=== PATIENT | male | born 1970 | race Caucasian/White ===

== ENCOUNTER → 2018-12-21 | Outpatient (CLI) | payer MEDICARE, OTHER, MEDICAID ==
[~2018-12-21] MED LIST: BACLOFEN20 MG PO; LASIX 20 MG TAB20 MG PO; NEURONTIN600 MG PO; PROTONIX40 M1 PO; SPIRONOLACTONE25 MG PO
--- NOTE | ~2018-12-21 | PAINCON ---
[address] [address] PAIN MANAGEMENT CONSULTATION Name: SAVANAH WALKER [id number] Admission: 12/21/18 Attend Phys: Tracey Read MD Discharge: Date of : 66 Report #: [id number] THIS REPORT FOR: //name// CC: Tracey Costa DATE OF SERVICE: 12/21/2018 CHIEF COMPLAINT: Chronic neck pain. HISTORY: The patient is a 48-year-old gentleman, who has been referred to the pain clinic for evaluation. The patient has bilateral arm pain and neck pain. He has had problems since 03/2015. 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 He was seen at the [facility] in 2014. He had cervical stenosis per his report. He underwent surgery. He states that when he woke up he was quadriplegic. He has had problems arising from the quadriplegia. He has undergone physical therapy. He continues to have muscle spasms. He notes that cold weather and changes in weather we have been experiencing have been quite problematic. The patient is homebound due to his paraplegia He has a walker/assisting device. He has limited mobility. The patient states that he has had some problems with liver. He states that he had significant fluid buildup in his abdomen. He has undergone drainage of this fluid. He states that they took off maybe about 6 liters. He has been found to have some elevated liver function tests. He continues to have chronic neck pain and has a history of alcohol abuse in the past. The patient states that he had the ascites drained from his abdomen about 4 weeks ago. PAST MEDICAL HISTORY: Anasarca, hepatic steatosis, ascites, thrombocytopenia, skin breakdown, stasis dermatitis, sinus tachycardia, prediabetes, paraplegia, chronic pain, macrocytic anemia, obstructive sleep apnea, elevated liver function test, cholelithiasis, cerebral palsy, spinal stenosis, testicular cancer, and jaundice. PAST SURGICAL HISTORY: Cervical intervention for cervical stenosis with resultant quadriplegia, surgical laminectomy, and leg surgery, left. CURRENT MEDICATIONS: Baclofen 20 mg q.i.d., Lasix 20 mg daily, gabapentin 600 mg t.i.d., Protonix 40 mg, and spironolactone 25 mg. ALLERGIES: No known drug allergies. SOCIAL HISTORY: He is disabled, has not worked in 6 years. REVIEW OF SYSTEMS: Generally, in good health, recent weight change, chronic sinus problems, nosebleeds, frequent urination, awakens at night to urinate, sexual difficulty, noninsulin dependent diabetes, excessive thirst, joint pains, [place] [address] PAIN MANAGEMENT CONSULTATION Name: SAVANAH WALKER Room: [facility]#: [id number] Admission: 12/21/18 Attend Phys: Tracey Read MD Discharge: Date of : 66 Report #: [id number] joint stiffness, muscle cramps, numbness and tingling sensation, tremors, and paralysis. PAIN CLINIC ASSESSMENT AND PQRS: 1. Osteoarthritis: The patient has not been treated for osteoarthritis or rheumatoid arthritis. 2. Pain intensity is 4-5/10. 3. Fall risk. The patient has not fallen in the last 3 months. 4. Blood thinner. The patient is not on a blood thinning medication. 5. Hypertension. The patient is being treated for hypertension. 6. Opioids greater than 6 weeks. The patient is not on chronic opioid medications. 7. Risk assessment tool, high for opioid use. 8. Functional assessment tool, . 9. Recreational drug use. The patient denies use of recreational drugs. 10. Tobacco: The patient smokes 1 pack of cigarettes per week. Discussed the benefits of smoking cessation. 11. Alcohol. The patient states that he stopped drinking about 4 months ago. He noted problems with ascites. PHYSICAL EXAMINATION: GENERAL: The patient is in a wheelchair. His significant other is with him. Height is 5 feet 11 inches, weight is not gleaned. HEENT: Normocephalic, atraumatic. Extraocular eye muscles intact. Sclerae nonicteric. Mucous membranes are moist. NECK: Without adenopathy. HEART: Regular rate. ABDOMEN: Nontender. Bowel sounds present. EXTREMITIES: The patient has paralysis in the lower extremities and paresis in the upper extremities. He notes some numbness and tingling sensation in his right arm and fingers as well as in the left arm and fingers. He has function of his upper extremities. LABORATORY DATA: No new laboratory values are available at this juncture. IMPRESSION: 1. History of ascites, possibly due to damage from liver and alcohol use. 2. Anasarca. 3. Hepatic steatosis. 4. Thrombocytopenia. 5. Skin breakdown. 6. Stasis dermatitis. 7. Sinus tachycardia. 8. Prediabetes. 9. Paraplegia. 10. Chronic pain. [address] [address] PAIN MANAGEMENT CONSULTATION Name: SAVANAH WALKER Room: [facility]#: [id number] Admission: 12/21/18 Attend Phys: Tracey Read MD Discharge: Date of : 66 Report #: [id number] 11. Macrocytic anemia. 12. Obstructive sleep apnea. 13. Elevated liver function test. 14. Cholelithiasis. 15. Cerebral palsy. 16. Spinal stenosis. 17. Testicular cancer. 18. Jaundice. RECOMMENDATIONS: The patient's primary has asked that we provide medications for his spasticity. We will continue with baclofen 10 mg 1 p.o. q.i.d. We had a long talk with the patient, discussed the problems with alcohol use. The patient is suffering from ascites. I explained the problems of additional alcohol use. We will provide the patient with the baclofen medication. We discussed the benefits and risks of obstructive sleep apnea. Recommend that the patient tried to use his CPAP machine. I explained as simply as possible reasons for ascites development and the implications. The patient will take his medication as prescribed. He will call us if he has any concerns. His significant other was with him. We would like to thank you for letting us to participate in his care. We hope he continues to improve. By: [id number]. Dennis Read MD /[place]
== END ==
LOC: M.PC 11:10
DX: M54.2 Cervicalgia (principal); G89.29 Other chronic pain; R60.1 Generalized edema; K76.0 Fatty (change of) liver, not elsewhere classified; D69.6 Thrombocytopenia, unspecified; I87.2 Venous insufficiency (chronic) (peripheral); R73.03 Prediabetes; G82.20 Paraplegia, unspecified; R00.0 Tachycardia, unspecified; L98.491 Non-pressure chronic ulcer of skin of other sites limited to breakdown of skin

== ENCOUNTER → 2019-02-17 | Outpatient (CLI) | payer MEDICARE, OTHER, MEDICAID ==
[~2019-02-17] MED LIST changes: +AMITRIPTYLINE H25 M2 PO
--- NOTE | ~2019-02-17 | PAINCON ---
[address] [address] PAIN MANAGEMENT CONSULTATION Name: DENISEMANFunimlayo Rosenbaum [id number] Admission: 02/17/19 Attend Phys: Tracey Read MD Discharge: Date of : 66 Report #: [id number] THIS REPORT FOR: //name// CC: Tracey Costa DO DATE OF SERVICE: 02/17/2019 CHIEF COMPLAINT: Pain in the elbows, hands and "burn sensation in my hands." HISTORY: The patient is a 48-year-old gentleman who has been seen in the pain clinic because of chronic pain. He had an unfortunate situation. He had spinal stenosis. After his spinal stenosis surgery, he became quadriplegic. He has undergone physical therapy. Continue having muscle spasms. Finds that the baclofen medication is quite helpful with this. He takes it about 3 times daily. He notes that the weather changes exacerbate this discomfort. Overall, now that the weather is warming up, things are less problematic. He is homebound due to his paraplegia. He uses a mobile electric wheelchair. He has had some problems with his liver. He states that he has changed his eating somewhat. He has lost some weight. He has noted that his lower extremities are less swollen and problematic. His significant other elevates his legs in the evening. He feels like things are going relatively well at this point. He would like to continue with his current medications. He has had no complications from them. He has used amitriptyline in the past. He felt that the level was about 200 mg. He states that this has kept him pretty sleepy as a result of that medication and others. ALLERGIES: No known drug allergies. CURRENT MEDICATIONS: Baclofen 20 mg q.i.d., Lasix 20 mg daily, gabapentin 600 mg t.i.d., Protonix 40 mg, and spironolactone 25 mg. PAIN CLINIC ASSESSMENT/PQRS: 1. Osteoarthritis. The patient is not being treated for osteoarthritis or rheumatoid arthritis. 2. Height 5 feet 11 inches, weight 215 pounds, and BMI is 29.5. 3. Vital signs: Blood pressure 137/82, heart rate 88, respiratory rate 16, room air saturation 98%, and temperature 98. Pain score 4/10. 4. Fall risk. The patient has not fallen in the last 3 months. 5. Blood thinner. The patient is not on a blood thinning medication. 6. Hypertension. The patient is being treated for hypertension. 7. Opioids greater than 6 weeks. The patient is not on a chronic opioid regimen. 8. Risk assessment tool. High for opioid use. 9. Functional assessment tool: . [place] [address] PAIN MANAGEMENT CONSULTATION Name: SAVANAH WALKER [facility] [id number] Admission: 02/17/19 Attend Phys: Tracey Read MD Discharge: Date of : 66 Report #: [id number] 10. Recreational drug use. The patient denies use of recreational drugs. 11. Tobacco: The patient smokes 1 pack of cigarettes per week. Discussed the benefits of smoking cessation. 12. Alcohol: The patient denies alcohol since we have seen him last. Stopped drinking about 4 months ago. He had ascites as a result of alcohol use. PHYSICAL EXAMINATION: GENERAL: The patient is in a wheelchair. Significant other is with him. HEENT: Normocephalic, atraumatic. Extraocular eye muscles intact. Sclerae nonicteric. Mucous membranes moist. NECK: Without adenopathy. A well-healed scar in the posterior portion of his neck. Upper extremity: Decreased muscle strength in the upper extremities and decreased movement in his fingers. ABDOMEN: Nontender. EXTREMITIES: Upper extremity shows paralysis. Numbness and tingling sensation in his right arm and fingers as well as his hands and fingers. Loss of function in the lower extremities. IMPRESSION: 1. History of ascites, possibly due to damage from the liver and alcohol use. 2. Anasarca, improved. 3. Hepatitis steatosis. 4. Thrombocytopenia. 5. Skin breakdown. 6. Stasis dermatitis. 7. Sinus tachycardia. 8. Prediabetes. 9. Paraplegia. 10. Chronic pain. 11. Microcytic anemia. 12. Obstructive sleep apnea. 13. Elevated liver function test. 14. Cholelithiasis. 15. Cerebral palsy. 16. Spinal stenosis. 17. Testicular cancer. 18. Jaundice. RECOMMENDATIONS: We discussed treatment options with the patient. At this point, he feels that things are going relatively well. He feels that the gabapentin medication is quite beneficial. Also, notes that baclofen is helpful with these muscle spasms. He has used Elavil in the past. He states that he was on about 200 mg. I think that use of Elavil at this juncture at a dose of 25-50 mg might prove helpful with the pain, numbness and tingling sensation he has felt in his extremities. Risks and benefits of that were discussed. The patient states that he is changing and modified his eating habits. He is eating [address] [place] [address] PAIN MANAGEMENT CONSULTATION Name: SAVANAH WALKER [facility] [id number] Admission: 02/17/19 Attend Phys: Tracey Read MD Discharge: Date of : 66 Report #: [id number] less of the high sugar and starchy foods. He has a lot noted some weight loss. He is overall happy with the way that things are going. At this juncture, we will renew the patient's medication for the next 3 months. A script for baclofen 20 mg 1 p.o. q.i.d. have been written. The patient will also try Elavil 25 mg at bedtime. Hopefully, this will be helpful. He will call us should he have problems. We would like to thank you for letting us participate in his care. We hope he continues to improve. By: 1214 1455N. Dennis Read MD /nt
== END ==
LOC: M.PC 01-18 10:50
DX: G89.29 Other chronic pain (principal); G47.33 Obstructive sleep apnea (adult) (pediatric); G80.9 Cerebral palsy, unspecified; I10 Essential (primary) hypertension; K76.0 Fatty (change of) liver, not elsewhere classified; M48.00 Spinal stenosis, site unspecified; C62.90 Malignant neoplasm of unspecified testis, unspecified whether descended or undescended; F17.210 Nicotine dependence, cigarettes, uncomplicated; Z79.899 Other long term (current) drug therapy; Z79.891 Long term (current) use of opiate analgesic

== ENCOUNTER 2019-05-22 14:53 | Inpatient (IN) | payer MEDICARE, OTHER, MEDICAID ==
[2019-05-22] VITALS (50 sets, daily range): BP systolic 000–152; BP diastolic 00–93
[~2019-05-22] VITALS: Ht 172.7 cm; Wt 116.6 kg
--- NOTE | ~2019-05-22 | PROC ---
[address] [address] PROCEDURE REPORT Name: SAVANAH WALKER Room: [address] IN .R.#: [id number] Admission: 05/22/19 Attend Phys: Gucci Malhotra MD Discharge: Date of : 66 Report #: [id number] THIS REPORT FOR: //name// For GI report, please see the Provation report in Perceptive 7 content. By: 07Medical Records Staff TOM /FARA
--- NOTE | ~2019-05-22 | CON ---
[address] [address] CONSULTATION Name: SAVANAH WALKER Room: [address] IN M.R.#: [id number] Admission: 05/22/19 Attend Phys: Gucci Malhotra MD Discharge: Date of : 66 Report #: [id number] THIS REPORT FOR: //name// CC: Foster Malhotra DATE OF SERVICE: 05/23/2019 REASON FOR CONSULT: Hematemesis. HISTORY OF PRESENT ILLNESS: This is a 48-year-old male who presented to our hospital with hypotension. The patient apparently has had melanotic stool at home and continued doing that during hospitalization. He also was intubated and during intubation, he had significant amount of hematemesis. His hemoglobin initially had dropped to 5 and he received 4 units of packed RBC, which increased his hemoglobin above 10. He also had elevation of his INR to 1.5 and received 2 units of FFP. Initially after intubation, he was placed on 2 different pressors and was maxed out on both. He continues to have borderline pressures. The patient has long history of alcoholism and has end-stage liver disease due to the same. The patient's mother reports that 4 months ago, he was in [facility] when they took quite bit of fluid from his intra-abdominal cavity. She believes that they took total of 28 liters. The patient's mother also reports that he continued to drink alcohol, but he is drinking beer versus hard liquor. The patient apparently lives at home alone. PAST MEDICAL HISTORY: Significant for history of alcoholism, alcoholic liver disease, gastroesophageal reflux disease, diabetes type 2, and spinal stenosis. ALLERGIES: No known drug allergy. MEDICATIONS: Please refer to MAR. SOCIAL HISTORY: Please refer to the other notes as we cannot obtain this. FAMILY HISTORY: Please refer to the other notes as we cannot obtain this. PHYSICAL EXAMINATION: GENERAL: The patient is currently intubated and is on pressors. VITAL SIGNS: His pressure is 111/49. His heart rate is 110. ABDOMEN: Large, soft. CARDIOVASCULAR: Tachycardic but regular. LUNGS: The patient is intubated. NEUROLOGIC: [place] [address] CONSULTATION Name: SAVANAH WALKER Room: [address]#: [id number] Admission: 05/22/19 Attend Phys: Gucci Malhotra MD Discharge: Date of : 66 Report #: [id number] LABORATORY DATA: Labs reveal sodium of 135, potassium 4.8, BUN is 43, creatinine 2.3, and glucose 211. AST is 1467, ALT 943, alkaline phosphatase 87, total bilirubin is 4.3, up from 1.7, lactic acid is 5.4. INR is 1.5. WBC 13.3 with hemoglobin of 9.4. Note after 4 units of packed RBC, platelet is 95. IMAGING: Chest x-ray was obtained today, which is significant for placement of endotracheal tube and gastric tube. There is mild gaseous distention of the stomach and there is also a new area of left lower lobe atelectasis versus pneumonia, which has developed and less in prominent area of the right lobe. ASSESSMENT AND PLAN: The patient who presents with hypotension, anemia, and history of melanotic stool. He is known to have alcoholic liver disease, cirrhosis. He is currently intubated and on pressors. The patient's prognosis is extremely poor. Currently, there is no sign of bleeding. We had started him on octreotide drip and also Protonix drip, which we will continue both. Also, he was on ceftriaxone, which we will continue that as well. I will monitor his H and H every 8 hours. His elevation of transaminases in 1500 range is secondary to shock liver. Note, the patient also has underlying liver disease due to cirrhosis. We will continue to monitor the patient. At this time, I do not see any urgency on scoping him. By: 1351 2216Izabel Magaña MD /[place]
[2019-05-22 15:11] LABS: BE -9.7 mmol/L (-2 to +3); PCO2 29.4 mmHg (35.0-45.0); PO2 122.9 mmHg (75.0-100.0); pH 7.333 (7.340-7.450)
[2019-05-22 15:54] LABS: MCH 30.7 pg (26.0-34.0); MCHC 29.3 g/dL (28.0-37.0); MCV 104.9 fL (80.0-100.0); MPV 10.6 fl. (7.2-11.1); NUCLEATED RBCS 0 /100WBC; PLATELET COUNT* 152 thou/uL (150-400); RBC 1.66 mil/uL (4.50-6.00); WBC 19.5 thou/uL (4.0-11.0)
[2019-05-22 15:56] LABS: HEMATOCRIT 17.4 % (42.0-52.0); HEMOGLOBIN 5.1 gm/dL (14.0-18.0)
[2019-05-22 16:06] LABS: URINE BLOOD 1+ (Negative); URINE CLARITY CLOUDY; URINE COLOR STRAW; URINE GLUCOSE-RANDOM 3+ (Negative); URINE KETONES NEGATIVE (Negative); URINE NITRITE-REFLEX NEGATIVE (Negative); URINE PROTEIN NEGATIVE (Negative); URINE SPECIFIC GRAVITY <= 1.005 (1.005-1.030); URINE UROBILINOGEN 0.2 E.U./dl (0.2-1.0)
[2019-05-22 16:07] LABS: URINE BILIRUBIN 1+ (Negative); URINE LEUKOCYTES-REFLEX 2+ (Negative)
[2019-05-22 16:08] LABS: ICTOTEST (BILI CONFIRMATORY) Negative (Negative)
[2019-05-22 16:11] LABS: SQUAMOUS 4-10 Moderate /LPF (0-3)
[2019-05-22 16:12] LABS: ALBUMIN 1.9 g/dL (3.4-5.0); ALKALINE PHOSPHATASE 58 U/L (46-116); ANION GAP 19 mmol/L (7-16); BUN 33 mg/dL (7-18); CHLORIDE 86 mmol/L (98-107); CO2 18 mmol/L (21-32); CREATININE 1.7 mg/dL (0.6-1.3); NT-PRO BRAIN NAT PEPTIDE 13 pg/mL (<300); POTASSIUM 4.8 mmol/L (3.5-5.1); SGOT 17 U/L (15-37); SGPT 17 U/L (30-65); SODIUM 123 mmol/L (136-145); TOTAL BILIRUBIN 1.7 mg/dL (<0.1-1.0); TOTAL PROTEIN 4.2 g/dL (6.4-8.2); TROPONIN-I LEVEL <0.06 ng/mL (<0.06)
[2019-05-22 16:12] LABS: BACTERIA-REFLEX >30 Many /HPF (None Seen); URINE RBC 3-10 Few /HPF (0-2); WBC CLUMPS Moderate (None Seen)
[2019-05-22 16:13] LABS: CASTS None Seen /LPF (None Seen); CRYSTALS None Seen /LPF (None Seen); MUCUS None Seen strn/LPF (None Seen)
[2019-05-22 16:35] LABS: APTT 30.1 Seconds (25.0-31.3); INR 1.5; PROTIME 15.4 Seconds (9.20-11.50)
[2019-05-22 16:42] LABS: GLUCOSE 940 mg/dL (70-99)
[2019-05-22 17:18] LABS: ABSOLUTE EOSINOPHILS 0.6 thou/uL (0.0-0.7); ABSOLUTE LYMPHOCYTES 7.8 thou/uL (0.8-5.3); ABSOLUTE MONOCYTES 1.4 thou/uL (0.0-1.2); ABSOLUTE NEUTROPHILS 9.8 thou/uL (1.6-8.1); PLATELET ESTIMATE ADEQUATE
[2019-05-22 17:19] LABS: ANISOCYTOSIS 1+; MACROCYTES 1+; POLYCHROMASIA 1+
[2019-05-22 17:20] LABS: HYPOCHROMASIA Occasional
--- NOTE | 2019-05-22 17:20 | NUR ---
CODE STARTED AT 1659. PULSE BACK AT 1714. PT INTUBATED AT 1659, VENTILATION SETTINGS VT 650, 5 PEEP, RATE OF 12, 100%. SEE CODE SHEET FOR MEDICATIONS, COMPRESSION AND TIMES
[2019-05-22 18:03] LABS: BE -24.1 mmol/L (-2 to +3); PCO2 VENOUS 37.6 mmHg (41.0-51.0); PO2 VENOUS 137.5 mmHg (35.0-45.0)
--- NOTE | 2019-05-22 18:36 | NUR ---
SEE CODE SHEET FOR DOCUMENTATION, THREE BAGS OF BLOOD TRANSFUSED, PT ON LEVO GTT, FLUIDS AND EPI GTT
--- NOTE | 2019-05-22 19:35 | NUR ---
PT RECEIVED FROM ER AT 1815, INTUBATED AND ON VENT. UNDER MASSIVE TRANSFUSION, 2 UNITS OF PRBC AND 2 UNITS OF FFP INITIATED IN ICU. LEVOPHED AND EPI AT MAX RATE. HR IN 180s, BP STABILISED. VERSED 3MG ADMINISTERED. INSULIN STARTED. REPORT GIVEN TO STORE OPERATIONS ASSOCIATE RN.
[2019-05-22 21:09] LABS: HEMATOCRIT 34.7 % (42.0-52.0); HEMOGLOBIN 10.8 gm/dL (14.0-18.0); MCH 28.1 pg (26.0-34.0); MCHC 31.1 g/dL (28.0-37.0); MCV 90.4 fL (80.0-100.0); MPV 9.5 fl. (7.2-11.1); RBC 3.84 mil/uL (4.50-6.00); RDW-CV 19.9 % (10.5-14.5); WBC 20.9 thou/uL (4.0-11.0)
[2019-05-22 21:34] LABS: POTASSIUM 4.8 mmol/L (3.5-5.1)
[2019-05-22 21:35] LABS: CREATININE 1.8 mg/dL (0.6-1.3); MAGNESIUM 2.2 mg/dL (1.8-2.4)
[2019-05-22 22:42] LABS: BE -14.6 mmol/L (-2 to +3); PCO2 VENOUS 46.4 mmHg (41.0-51.0); PO2 VENOUS 86.8 mmHg (35.0-45.0)
--- NOTE | 2019-05-22 23:15 | NUR ---
NOTIFIED DR HARVEY TROP 0.66, HGB TRENDING UP FROM 5.1 TO 10.8, SVT CONTINUES HR 200'S-220, X1 DOSE ADENOSINE 12MG IVP MINIMAL EFFECT, HR DECREASED FROM 218 T0 180'S VIA RUBBER COVERING MACHINE OPERATOR FOR APROX 5MIN IN DURATION THEN INCREASED BACK TO 200-220'S. UPDATED DR HARVEY, NEW ORDERS RECEIVED ADMINISTER X1 MORE DOSE ADENOSINE 12MG IVP NOW. LEVOPHED AND VASOPRESSIN GTT'S REMAIN MAXED OUT TO MAINTAIN MAP 60. WILL INTATE ORDERS AND CONTINUE TO MONITOR.
--- NOTE | 2019-05-22 23:49 | NUR ---
ADENOSINE 12MG IVP GIVEN ORDERED, HR CONTINUES LOW 220'S, LEVOPHED AND VASOPRESSIN GTT'S TO MAINTAIN MAP =>60, NO CHANGE IN HR WITH ADENOSINE ADMINISTRATION, UPDATED DR HARVEY VIA TELEPHONE, NEW ORDERS TO ADMINISER LOADING DOSE DIGOXIN IVP, WILL INITATE ORDERS AND CONTINUE TO MONITOR.
[2019-05-22] MEDS ORDERED: LASIX 80 MG TAB80 MG PO (23:53)
[2019-05-23] VITALS (168 sets, daily range): BP systolic 60–148; BP diastolic 26–77
[2019-05-23] MEDS ORDERED: TRAZODONE HCL50 MG PO ×2 (00:03)
[2019-05-23] MEDS ORDERED: LASIX 80 MG TAB80 MG PO (00:07)
[2019-05-23] MEDS ORDERED: KLOR-CON 1010 MEQ (00:14)
[2019-05-23] MEDS ORDERED: REVATIO20 MG PO (00:17)
[2019-05-23 00:55] LABS: ALBUMIN 2.4 g/dL (3.4-5.0); CALCIUM 8.6 mg/dL (8.5-10.1); CREATININE 1.9 mg/dL (0.6-1.3); PHOSPHORUS* 7.1 mg/dL (2.5-4.9); POTASSIUM 4.8 mmol/L (3.5-5.1)
[2019-05-23 02:04] LABS: HEMATOCRIT 33.8 % (42.0-52.0); HEMOGLOBIN 11.1 gm/dL (14.0-18.0)
[2019-05-23 04:02] LABS: HEMATOCRIT 32.2 % (42.0-52.0); HEMOGLOBIN 10.8 gm/dL (14.0-18.0); MCH 28.3 pg (26.0-34.0); MCHC 33.5 g/dL (28.0-37.0); MPV 9.7 fl. (7.2-11.1); PLATELET COUNT* 95 thou/uL (150-400); WBC 13.3 thou/uL (4.0-11.0)
[2019-05-23 04:10] LABS: MCV 84.7 fL (80.0-100.0)
[2019-05-23 04:35] LABS: ALBUMIN 2.2 g/dL (3.4-5.0); MAGNESIUM 1.8 mg/dL (1.8-2.4); POTASSIUM 4.7 mmol/L (3.5-5.1); TOTAL BILIRUBIN 4.3 mg/dL (<0.1-1.0); TOTAL PROTEIN 4.8 g/dL (6.4-8.2)
[2019-05-23 05:41] LABS: pH 7.291 (7.340-7.450)
[2019-05-23 05:46] LABS: PHOSPHORUS* 5.1 mg/dL (2.5-4.9)
[2019-05-23 06:13] LABS: NUCLEATED RBCS 1 /100WBC
--- NOTE | 2019-05-23 06:21 | NUR ---
[address] HARVEY ORDERS FOR CARDIOVERSION PER ACLS PROTOCAL TO BE COMPLETED PER RN; 0050 THIS RN AT THE THIS BEDSIDE, PT PLACED ON LIFEPACK, MONITOR TRACING SVT RATE 230'S, WITH CRASH CART IN ROOM, RT, RNs x3; PT SHOCKED AT 200J PER PROTOCAL X1; PT CONVERTED TO ST 120'S; REPORTED TO DR HARVEY CARDIOVERSION EFFECTIVE; CARE CONTINUED BY JANICE PEOPLES.
[2019-05-23 07:27] LABS: ABSOLUTE LYMPHOCYTES 1.2 thou/uL (0.8-5.3); ABSOLUTE MONOCYTES 0.3 thou/uL (0.0-1.2); ABSOLUTE NEUTROPHILS 11.8 thou/uL (1.6-8.1); ANISOCYTOSIS 1+; PLATELET ESTIMATE DECREASED; POLYCHROMASIA 2+
[2019-05-23 08:50] LABS: CALCIUM 7.7 mg/dL (8.5-10.1); CREATININE 2.3 mg/dL (0.6-1.3); MAGNESIUM 1.5 mg/dL (1.8-2.4); PHOSPHORUS* 3.4 mg/dL (2.5-4.9); POTASSIUM 4.5 mmol/L (3.5-5.1)
--- NOTE | 2019-05-23 10:48 | NUR ---
Spoke with Pt's mom at bedside. Pt resides at home with his fiance. Pt is quadriplegic, but has regained some movement, but does not ambulate. Pt is wc bound. Pt has a hospital bed, tiffanie lift, and cpap at home. Pt has an aide, that's a friend, that comes in to assist with ADLs. No hx of HH. Hx of LTC at [facility] and acute rehab at [facility]. Cm following for disposition. ICU Rounds: Pt was cardioverted last evening. Here for GI bleed, possible scope toda. Arterial line placed.
[2019-05-23 11:51] LABS: BE -8.6 mmol/L (-2 to +3); PCO2 29.4 mmHg (35.0-45.0); PO2 79.7 mmHg (75.0-100.0); pH 7.351 (7.340-7.450)
[2019-05-23 12:48] LABS: CALCIUM 8.3 mg/dL (8.5-10.1); CREATININE 2.3 mg/dL (0.6-1.3); MAGNESIUM 1.5 mg/dL (1.8-2.4); PHOSPHORUS* 3.5 mg/dL (2.5-4.9); POTASSIUM 4.8 mmol/L (3.5-5.1)
[2019-05-23 15:39] LABS: BE -6.4 mmol/L (-2 to +3); PCO2 32.4 mmHg (35.0-45.0); pH 7.365 (7.340-7.450)
--- NOTE | 2019-05-23 15:42 | NUR ---
PT PASSED HUGE BLACK TARRY STOOL. PROVIDERS AWARE. MINIMAL NG DRAINAGE. NO ACTIVE BLEEDING.
[2019-05-23 15:44] LABS: PO2 199.7 mmHg (75.0-100.0)
--- NOTE | 2019-05-23 17:01 | EKG ---
[place] [address] ELECTROCARDIOGRAM REPORT Name: SAVANAH WALKER Room: [address] ADM IN M.R.#: [id number] Admission: 05/22/19 Attend Phys: Gucci Malhotra MD Discharge: Date of : 66 Report #: [id number] THIS REPORT FOR: //name// [facility] ED Test Date: 2019-05-22 Test Time: 14:56:42 Pat Name: SAVANAH WALKER Department: Room: [address] Gender: M Supervisor [employer]: [place] : 1970 Requested By: Jennifer Conway Order Number: [id number] Emanuel MD: Dat Quijano Measurements Intervals [place] Rate: 123 P: 42 MD: 128 QRS: -9 QRSD: 108 T: 29 QT: 353 QTc: 505 Interpretive Statements Sinus tachycardia Atrial premature complexes RSR' in V1 or V2, right VCD or RVH Prolonged QT interval Baseline wander in lead(s) V4,V5 No previous ECG available for comparison Electronically Signed On 05-23-2019 17:01:09 CDT by Dat Quijano [email or web address] <ELECTRONICALLY SIGNED> By: Dat Quijano MD, FACC 05/23/19 1701 1456 1456 Dat Quijano MD, [facility] /EPI
--- NOTE | 2019-05-23 17:01 | 2DMMODE ---
[place] [address] 2 D/M-MODE ECHOCARDIOGRAM Name: SAVANAH WALKER Room: [address] IN R.#: [id number] Admission: 05/22/19 Attend Phys: Gucci Malhotra, Discharge: Date of : 66 Date of Service: 05/23/19 1701 Report #: [id number] THIS REPORT FOR: //name// APPROVED REPORT Study performed: 05/23/2019 13:51:12 EXAM: Comprehensive 2D, Doppler, and color-flow Echocardiogram Patient Location: Bedside BSA: 2.20 HR: 115 bpm BP: 113/28 mmHg Other Information Study Quality: Fair Indications Arrhythmia 2D Dimensions IVSd: 11.81 (7-11mm) LVOT Diam: 20.99 (18-24mm) LVDd: 46.57 mm PWd: 11.18 (7-11mm) Ascending Ao: 29.23 (22-36mm) LVDs: 34.35 (25-40mm) Aortic Root: 30.68 mm Volumes Left Atrial Volume (Systole) LA ESV Index: 19.90 mL/m2 Aortic Valve AoV Peak Hieu.: 1.40 m/s AO Peak Gr.: 7.81 mmHg LVOT Max P.31 mmHg AO Mean Gr.: 4.73 mmHg LVOT Mean P.84 mmHg LVOT Max V: 1.26 m/s AO V2 VTI: 18.63 cm LVOT Mean V: 0.76 m/s MAUDE (VTI): 2.29 cm2 LVOT V1 VTI: 12.35 cm Mitral Valve E/A Ratio: 1.26 MV Decel. Time: 163.68 ms MV E Max Hieu.: 0.57 m/s MV PHT: 47.47 ms MVA (PHT): 4.63 cm2 [place] [address] 2 D/M-MODE ECHOCARDIOGRAM Name: SAVANAH WALKER Room: [address] IN [facility]#: [id number] Admission: 05/22/19 Attend Phys: Gucci Malhotra, Discharge: Date of : 66 Date of Service: 05/23/19 1701 Report #: [id number] TDI E/Lateral E': 5.70 E/Medial E': 4.38 Medial E' Hieu.: 0.13 m/s Lateral E' Hieu.: 0.10 m/s Pulmonary Valve PV Peak Hieu.: 1.27 m/s PV Peak Gr.: 6.41 mmHg Tricuspid Valve RAP Estimate: 5.00 mmHg TR Peak Gr.: 27.88 mmHg RVSP: 32.88 mmHg PA Pressure: 32.88 mmHg Left Ventricle The left ventricle is normal size. There is normal LV segmental wall motion. There is normal left ventricular wall thickness. Left ventricular systolic function is normal. The left ventricular ejection fraction is within the normal range. LVEF is 65-70%. The left ventricular diastolic function is normal. Right Ventricle The right ventricle is normal size. The right ventricular systolic function is normal. Atria The left atrium size is normal. The right atrium size is normal. Aortic Valve The aortic valve is normal in structure. No aortic regurgitation is present. There is no aortic valvular stenosis. Mitral Valve The mitral valve is normal in structure. There is no mitral valve regurgitation noted. No evidence of mitral valve stenosis. Tricuspid Valve The tricuspid valve is normal in structure. Trace tricuspid regurgitation. Pulmonic Valve The pulmonary valve is normal in structure. There is no pulmonic valvular regurgitation[place] [address] 2 D/M-MODE ECHOCARDIOGRAM Name: SAVANAH WALKER Room: [address] IN [facility]#: [id number] Admission: 05/22/19 Attend Phys: Gucci Malhotra, Discharge: Date of : 66 Date of Service: 05/23/19 1701 Report #: [id number] The aortic root is normal in size. IVC is normal in size and collapses >50% with inspiration. Pericardium There is no pericardial effusion. <Conclusion> The left ventricle is normal size. There is normal left ventricular wall thickness. Left ventricular systolic function is normal. The left ventricular ejection fraction is within the normal range. LVEF is 65-70%. The right ventricle is normal size. The left atrium size is normal. The aortic valve is normal in structure. The mitral valve is normal in structure. The tricuspid valve is normal in structure. IVC is normal in size and collapses >50% with inspiration. There is no pericardial effusion. There is normal LV segmental wall motion. <ELECTRONICALLY SIGNED> By: Kan Colorado MD, FACC 05/23/191700 00 00 Kan Colorado MD, FACC /INF
--- NOTE | 2019-05-23 17:03 | EKG ---
[place] [address] ELECTROCARDIOGRAM REPORT Name: SAVANAH WALKER Room: [address] ADM IN M.R.#: [id number] Admission: 05/22/19 Attend Phys: Gucci Malhotra MD Discharge: Date of : 66 Report #: [id number] THIS REPORT FOR: //name// [facility] ED Test Date: 2019-05-22 Test Time: 17:36:50 Pat Name: SAVANAH WALKER Department: Room: [address] Gender: M Rn Clinical [facility] 1970 Requested By: Jennifer Conway Order Number: [id number] Emanuel MD: Dat Quijano Measurements Intervals [place] Rate: 171 P: [place]: QRS: 33 QRSD: 114 T: 14 QT: 311 QTc: 525 Interpretive Statements Atrial fibrillation with rapid V-rate Incomplete right bundle branch block ST depression, probably rate related Baseline wander in lead(s) V1 No previous ECG available for comparison Electronically Signed On 05-23-2019 17:02:57 CDT by Dat Quijano [email or web address] <ELECTRONICALLY SIGNED> By: Dat Quijano MD, [facility] 05/23/19 1702 1736 1736 Dat Quijano MD, [facility] /EPI
--- NOTE | 2019-05-23 17:03 | EKG ---
[place] [address] ELECTROCARDIOGRAM REPORT Name: SAVANAH WALKER Room: [address] ADM IN M.R.#: [id number] Admission: 05/22/19 Attend Phys: Gucci Malhotra MD Discharge: Date of : 66 Report #: [id number] THIS REPORT FOR: //name// [facility] Test Date: 2019-05-22 Test Time: 18:53:15 Pat Name: SAVANAH WALKER Department: Room: [address] Gender: M Executive Creative Director: crow : [id number] Requested By: Gucci Malhotra Order Number: [id number] Reading MD: Dat Quijano Measurements Intervals [place] Rate: 190 P: PA: QRS: 30 QRSD: 128 T: 1 QT: 280 QTc: 498 Interpretive Statements Atrial fibrillation with rapid ventricular response Right bundle branch block Artifact in lead(s) II,aVR,V1,V2,V3,V4,V5,V6 No previous ECG available for comparison Electronically Signed On 05-23-2019 17:03:29 CDT by Dat Quijano [email or web address] <ELECTRONICALLY SIGNED> By: Dat Quijano MD, FACC 05/23/19 1703 [id number] Dat Quijano MD, FAC /EPI
[2019-05-23 19:31] LABS: HEMATOCRIT 27.5 % (42.0-52.0); HEMOGLOBIN 9.1 gm/dL (14.0-18.0); MCHC 33.1 g/dL (28.0-37.0); MCV 84.7 fL (80.0-100.0); MPV 9.7 fl. (7.2-11.1); RBC 3.25 mil/uL (4.50-6.00); RDW-CV 20.4 % (10.5-14.5); WBC 18.2 thou/uL (4.0-11.0)
--- NOTE | 2019-05-23 19:34 | NUR ---
PT'S BP LOW IN THE MORNING, NS BOLUS 500 MLS GIVEN, LEVOPHED AND VASOPRESSOR TITRATED PER PROTOCOL. INSULIN AND FLUID MGMT PER DKA PROTOCOL. OKAY FOR THE LABS TO BE DRAWN EVERY [address] HARVEY. MAG REPLACED HALF OF THE NORMAL ELECTROLYTE PROTOCOL. URINE- 450 MLS DARK TEA COLORED. ART LINE INSERTED. CVP MONITORING INITIATED. Q2 TURNS FOR SKIN INTEGRITY. ROUTINE CARE GIVEN.
[2019-05-23 19:36] LABS: CALCIUM 8.2 mg/dL (8.5-10.1); MAGNESIUM 1.9 mg/dL (1.8-2.4)
[2019-05-23 19:40] LABS: POTASSIUM 5.9 mmol/L (3.5-5.1)
[2019-05-23 20:16] LABS: URINE BLOOD 1+ (Negative); URINE CLARITY CLEAR; URINE COLOR YELLOW; URINE GLUCOSE-RANDOM NEGATIVE (Negative); URINE KETONES NEGATIVE (Negative); URINE LEUKOCYTES 1+ (Negative); URINE NITRITE POSITIVE (Negative); URINE PROTEIN NEGATIVE (Negative)
[2019-05-23 20:25] LABS: URINE BILIRUBIN 1+ (Negative)
[2019-05-23 20:26] LABS: ICTOTEST (BILI CONFIRMATORY) Positive (Negative)
[2019-05-23 20:27] LABS: SQUAMOUS 0-3 Few /LPF (0-3); URINE RBC 3-10 Few /HPF (0-2); URINE WBC 6-15 Few /HPF (0-5)
[2019-05-23 20:28] LABS: CRYSTALS None Seen /LPF (None Seen); FINE GRANULAR CASTS 0-3 Few /LPF (None Seen)
--- NOTE | 2019-05-23 21:53 | NUR ---
PT FEBRILE 103.2 ORAL, BLOOD CULTURES PREVIOUSLY OBTAINED 05/22/19, NOTIFIED DR VARGAS BIOMEDICAL PHOTOGRAPHER FOR DR HARVEY, NEW ORDERS OBTAINED TYLENOL SUPPOSITORY 650MG PER RECTUM Q4 PRN FEVER/PAIN, WILL ADMINISTER ORDERED AND CONTINUE TO MONITOR.
[2019-05-24] VITALS (123 sets, daily range): BP systolic 70–297; BP diastolic 37–208
[2019-05-24 00:41] LABS: CALCIUM 7.8 mg/dL (8.5-10.1); CREATININE 2.1 mg/dL (0.6-1.3); MAGNESIUM 1.7 mg/dL (1.8-2.4); PHOSPHORUS* 3.4 mg/dL (2.5-4.9)
--- NOTE | 2019-05-24 00:49 | NUR ---
OBTAINED Q4 RENAL PANAL RESULTS, D5 NS DC'D AND 0.45% NS TRA 125CC/HR TO BE STARTED PER DKA PROTOCOL ORDER. WILL INITIATE ORDERED AND CONTINUE TO MONITOR.
[2019-05-24 05:03] LABS: HEMOGLOBIN 8.8 gm/dL (14.0-18.0); MCH 28.4 pg (26.0-34.0); MCHC 33.8 g/dL (28.0-37.0); MCV 84.1 fL (80.0-100.0); MPV 9.7 fl. (7.2-11.1); RBC 3.1 mil/uL (4.50-6.00); WBC 19.6 thou/uL (4.0-11.0)
[2019-05-24 05:22] LABS: INR 1.8; PROTIME 18.3 Seconds (9.20-11.50)
[2019-05-24 05:40] LABS: CALCIUM 7.8 mg/dL (8.5-10.1); CREATININE 1.8 mg/dL (0.6-1.3); MAGNESIUM 1.9 mg/dL (1.8-2.4); POTASSIUM 4.7 mmol/L (3.5-5.1); TOTAL BILIRUBIN 7.6 mg/dL (<0.1-1.0); TOTAL PROTEIN 4.6 g/dL (6.4-8.2)
[2019-05-24 05:48] LABS: ALBUMIN 2.1 g/dL (3.4-5.0); CALCIUM 7.9 mg/dL (8.5-10.1); CREATININE 1.9 mg/dL (0.6-1.3); MAGNESIUM 1.8 mg/dL (1.8-2.4); PHOSPHORUS* 3.5 mg/dL (2.5-4.9); POTASSIUM 4.7 mmol/L (3.5-5.1)
--- NOTE | 2019-05-24 06:45 | NUR ---
SLOW PROGRESSION TOWARDS GOALS, FAN AND TYLENOL SUPPOSITORY X1 HELPFUL FOR FEVER, PT TOLERATING DECREASE FIO2 FROM 75% TO 50% BY RT, MAINTAINING SAO2 =>98%, HBG DECREASED FROM 9.4 TO 8.8, 500CC MAROON BLOODY FLUID FROM LIS NG, CONTINUES INSULIN GTT VIA INFUSION PUMP, ST [employer]AC[employer] TRAV[employer] A[employer] WORKER HR 120'S, X1 SMALL BLACK LIQUID STOOL, DANIELS PATENT DD 1200CC DARK ORANGE URINE, LEVOPHED GTT VIA INFUSION PUMP ABLE TO BE TITRATED FROM 19MCG/MIN TO 13MCG/MIN MAINTAINING MAP =>60.
--- NOTE | 2019-05-24 08:35 | CON ---
[address] [address] CONSULTATION Name: SAVANAH WALKER Room: [address] IN .R.#: [id number] Admission: 05/22/19 Attend Phys: Gucci Malhotra MD Discharge: Date of : 66 Report #: [id number] THIS REPORT FOR: //name// CC: Foster Costa DO DATE OF SERVICE: 05/23/2019 PULMONARY CONSULTATION ATTENDING PHYSICIAN: Gucci Malhotra MD; Foster Ramsey DO PRIMARY CARE PHYSICIAN: Rocky Costa DO LOCATION: The patient is located in room ICU bed #6. INDICATION FOR CONSULTATION: Acute respiratory failure, code blue, GI bleeding, and hypotension. CLINICAL SUMMARY: The patient is a 48-year-old male, prior smoker, quit 5 years ago. He was in the Emergency Room after had an upper GI bleed and he had weakness and hypotension. He had had bloody stools. He had frankie bloody vomitus before seen in the Emergency Room and he had black tarry stools. The patient around 5:00 p.m. yesterday afternoon, had a 15-minute PEA cardiac arrest. He dropped his blood pressure. He was on 5 units protocol and he had 5 units of packed cells and a couple units FFP. He appeared to survive from that. He was hypotensive and then transferred to the intensive care unit. His fasting blood sugar at the time was greater than 1000. He had metabolic acidosis for multiple reasons, positive anion gap. PAST MEDICAL HISTORY: I discussed with his mother and his sister at the bedside. He has had multiple medical problems. He was born with cerebral palsy. He was high functioning. He graduated college. He has been out on his own. 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 He had some spinal surgery at [facility] about 5 years ago and he had more paresis after that after they tried to repair his spinal stenosis. He can get up and walk with 2 people helping him at home with a gait belt and a walker. He gets up from the bed and chair and walks to the bathroom, 10-15 feet. His fiancee or girlfriend lives with him and helps him out and helps to use a Dara lift. He also has a history of chronic pain syndrome and he is an alcoholic according to the and sister, drinks several beers a day and also drinks some hard liquor. He has never had DTs before or been in this bad of shape according to the family. He has not had upper GI bleeds before or ulcers. Recently, the sister just told me he has not been wearing the CPAP at home recently. He is a loud snorer [place] [address] CONSULTATION Name: DENISEMARIIATANYA Rosenbaum Room: [address] IN [facility]#: [id number] Admission: 05/22/19 Attend Phys: Gucci Malhotra MD Discharge: Date of : 66 Report #: [id number] This has been for several years. We think it is a full facemask and it is supposed to be either 8-12 cm, we are trying to get that information from his fiancee. He also has a history of neuropathy. He has had diabetes mellitus type 2 and also cirrhosis problems and ascites, also had spinal stenosis, questionable history of COPD in the past from prior smoking history, although he did quit 5 years ago. He was not on oxygen at home, not on inhalers at home. He is unresponsive on the vent. He is on some sedation and he is hypotensive. I was asked to see him. He is also hypoxic on 100% and 5 of PEEP. ALLERGIES: He has no known medical allergies. MEDICATIONS: His current outpatient medications included he was on spironolactone 25 mg daily, Protonix 40 mg daily, furosemide (Lasix) 20 mg daily, Neurontin 600 mg t.i.d. He was taken off Elavil. He may have been on baclofen recently. Currently, he is on a Protonix drip. He is on IV antibiotics. He is on IV pressors, Levophed, and vasopressin and he has received some IV fluids. We also given another 500 mL normal saline bolus at this time. He may remain hypotensive with his liver disease and cirrhosis, may have some high output failure. He has also received one-time dose of Lanoxin for rapid heart rate, 0.25 mg and he has had one dose of adenosine. He has had octreotide also for drip and he is still on a fentanyl drip, and he was on a diltiazem drip and that has been discontinued. Sliding scale insulin and insulin drip is noted. Received 1 dose of Solu-Medrol 125 mg. He is on DuoNeb treatments, also on low-dose Versed at 3 mg per hour. REVIEW OF SYSTEMS: A 14-point review of systems reviewed and negative except for the pertinent positives noted by the family as above, also positive for obstructive sleep apnea and alcohol-induced liver disease, as well as diabetes and quadriparesis of his legs and some mild cerebral palsy. It should be noted his smoking history was 30 years, one pack a day but he quit 5 years ago. Still has alcoholic use with beer and occasionally some hard liquor. PHYSICAL EXAMINATION: GENERAL: A very critically-ill appearing 48-year-old male, sedated on the ventilator. He is nonresponsive. VITAL SIGNS: Currently his vital signs are; blood pressure 68/40 with the arterial line in with a fair waveform. He was reading 80/50 with the cuff. Heart rate is 110, respiratory rate is 22 with a backup rate of 22, and saturations 99% on 100% FiO2 and 7 of PEEP. Peak inspiratory pressure is 28. He is 5 feet 10 inches tall, weight is 111 kg or 230 pounds and BMI is 37. HEENT: Pupils are midpoint, sluggishly reactive. He is orally intubated, has an NG tube in place with some bloody secretions at 500 mL out of old bloody secretions over the last 8-12 hours. NECK: Supple, without nodes. No increase in jugular venous pressure. Orally intubated at 24 at the lips. CHEST: Shows a few rhonchi and crackles on the left, fairly [place] [id number] CONSULTATION Name: SAVANAH WALKER Room: [address] IN .R.#: [id number] Admission: 05/22/19 Attend Phys: Gucci Malhotra MD Discharge: Date of : 66 Report #: [id number] CARDIOVASCULAR: Sinus tachycardia with a heart rate 110. ABDOMEN: Obese, mild fluid wave. Liver edge is palpable on the right. No spleen on the left palpable. He is nontender. EXTREMITIES: Without cyanosis, clubbing, or edema. NEUROLOGIC: He withdraws to stimuli. LABORATORY DATA: Hemoglobin is 10 this morning with a white count of 13,000, normal differential, platelets are 95,000, had 24% bands. Initial hemoglobin was 5 when he came in. He has had 5 units since then of packed RBCs and 2 units of fresh frozen plasma. INR has been 15. Fibrinogen has been low at 150. PTT is 30. This morning; sodium is 133, potassium is 4.5, carbon dioxide is 20, BUN is 41, creatinine 2.3, glucose was 308, GFR was 30, calcium 7.7 and albumin is 2.0. ABG this morning on 100% and 600, assist control of 20 and PEEP of 5 shows a pO2 of 100, pH 7.29, pCO2 is 33, bicarbonate 16, saturation is 96%. Chest x-ray shows ET tube in good position, left central line in good position, no pneumothorax, left lower lobe and lung infiltrate new today from yesterday, right lung is clear. No definite CHF is noted. Blood cultures are pending. IMPRESSION: 1. Acute respiratory failure. 2. Status post code blue, pulseless electrical activity, probably related to hemorrhagic shock with pulseless electrical activity and hypotension and hemoglobin of 5. 3. Ischemic acute tubular necrosis, improving. 4. Liver cirrhosis associated with variceal bleed. 5. Toxic encephalopathy. 6. Diabetic ketoacidosis. 7. Supraventricular tachycardia with emergent cardioversion. 8. Ischemic hepatitis. 9. Spinal stenosis with quadriparesis of his legs with some ambulation at home. 10. Obstructive sleep apnea, not being treated at this time, full facemask with either 8 or 12 cm of CPAP. 11. Probable chronic obstructive pulmonary disease with cigarette smoking, quit 5 years ago, left lung infiltrate and early aspiration pneumonia. PLAN: Continue antibiotics. Await cultures, see if we can improve his oxygenation. He is hypotensive at this time may need to check his CVP. We will wait and see what GI does with endoscopy, see if there is anything to cauterize to help him out. Still very guarded prognosis and I discussed this with the patient's and sister at the bedside. They understood and agreed. This has been a 39-minute critical care consult. <ELECTRONICALLY SIGNED> By: George Soto MD 05/24/19 0835 1027 [id number] Soto MD /nt
[2019-05-24 09:23] LABS: ALBUMIN 1.9 g/dL (3.4-5.0); CALCIUM 7.6 mg/dL (8.5-10.1); CREATININE 1.9 mg/dL (0.6-1.3); MAGNESIUM 1.8 mg/dL (1.8-2.4); PHOSPHORUS* 3.3 mg/dL (2.5-4.9); POTASSIUM 4.4 mmol/L (3.5-5.1)
[2019-05-24 10:31] LABS: HEMATOCRIT 23.8 % (42.0-52.0); HEMOGLOBIN 7.9 gm/dL (14.0-18.0); MCH 28.2 pg (26.0-34.0); MCHC 33.3 g/dL (28.0-37.0); MCV 84.5 fL (80.0-100.0); MPV 8.8 fl. (7.2-11.1); RBC 2.82 mil/uL (4.50-6.00); RDW-CV 20.6 % (10.5-14.5); WBC 12.1 thou/uL (4.0-11.0)
[2019-05-24 11:01] LABS: BE -5.5 mmol/L (-2 to +3); PCO2 31.4 mmHg (35.0-45.0); pH 7.392 (7.340-7.450)
--- NOTE | 2019-05-24 12:12 | NUR ---
Nutrition: Pt admitted with GIB. Assessed for Joseph score 10. On vent. Wt: 257#. Per ICU rounds, awaiting GI consult. No nutrition interventions needed at this time. Will follow POC, 05/25/19.
[2019-05-24 12:27] LABS: CALCIUM 8.3 mg/dL (8.5-10.1); CREATININE 1.9 mg/dL (0.6-1.3); MAGNESIUM 1.8 mg/dL (1.8-2.4); PHOSPHORUS* 3.6 mg/dL (2.5-4.9); POTASSIUM 4.3 mmol/L (3.5-5.1)
--- NOTE | 2019-05-24 12:36 | NUR ---
WOUND CARE: CONSULT FOR COCCYX AND GROIN EXCORIATION PT WAS BROUGHT IN TO ER FOR SYNCOPE EPISODE. PT CODED WHILE IN ER AND TRANSFERED TO ICU ON VENT. HGB HAS BEEN DECREASED WITH PERIODIC BLOOD TRANSFUSIONS. HE HAS A HX OF SPINAL STENOSIS WITH QUADRIPARSIS AND CEREBRAL PALSY. PT WAS SEEN IN ICU, CURRENTLY INTUBATED, DANIELS IN PLACE WITH NG TUBE. PT NOT RESPONSIVE. PT HAS SEVERAL AREAS TO HIS BILAT BUTTOCK, COCCYX AND SACRUM THAT COULD POSSIBLY BE DTI. THE SACRUM IS DEEP PURPLE WITH THE SKIN SPLIT IN A TEAR. THERE IS NO DRAINAGE, THE SURROUNDING SKIN IS APPROPRIATE AND BLANCHES. THE PT IS HAVING INCONTINANT LIQUID DARK STOOLS. THERE IS MOISTURE ASSOCIATED EXCORIATION WITH A POSSIBLE FUNGAL COMPONENET TO BILAT GROIN FOLDS. ALL AREAS WASHED WITH WOUND CLEANSER, PATTED DRY. THE SACRUM WAS COVERED WITH A BOARDERED FOAM DRESSING, APPLIED PHYTOPLEX TO THE SURROUNDING BUTTOCK TISSUE. APPLIED ANTIFUNGAL OINTMENT TO GROIN FOLDS. PTS HEELS WERE ASSESED, SKIN IS INTACT, NO BREAKDOWN NOTED. PTS HEELS FLOATED FROM BED WITH PILLOW. PT TURNED WITH NURSES HELP.
--- NOTE | 2019-05-24 13:03 | NUR ---
RECEIVED REPORT AND ASSUMED CARE AT 0700. ASSESSMENT COMPLETED CHARTED. MEDICATION ADMIN PER EMAR. BED LOCKED IN LOWEST POSITION.
[2019-05-24 16:14] LABS: HEMOGLOBIN 8.4 gm/dL (14.0-18.0)
[2019-05-24 16:26] LABS: CALCIUM 7.8 mg/dL (8.5-10.1); CREATININE 1.7 mg/dL (0.6-1.3); MAGNESIUM 1.9 mg/dL (1.8-2.4); PHOSPHORUS* 3.5 mg/dL (2.5-4.9); POTASSIUM 4.2 mmol/L (3.5-5.1)
--- NOTE | 2019-05-24 17:13 | NUR ---
SPOKE WITH DR HARVEY RE PT HR OF 140S. LEVOPHED TITRATED PT VERY SENSITIVE TO CHANGES. NO NEW ORDERS DR FEELS BEST TO NOT ADD ANYTHING AT THIS TIME ALSO REPORTED HGB OF 8.
[2019-05-24 20:05] LABS: ABSOLUTE LYMPHOCYTES 0.8 thou/uL (0.8-5.3); ABSOLUTE MONOCYTES 0.6 thou/uL (0.0-1.2); ABSOLUTE NEUTROPHILS 13.3 thou/uL (1.6-8.1); BASOPHILS 0.2 %; EOSINOPHILS 0.1 %; HEMATOCRIT 25.6 % (42.0-52.0); HEMOGLOBIN 8.5 gm/dL (14.0-18.0); LYMPHOCYTES 5.3 %; MCH 27.9 pg (26.0-34.0); MCHC 33.2 g/dL (28.0-37.0); MPV 8.8 fl. (7.2-11.1); NUCLEATED RBCS 0 /100WBC; PLATELET COUNT* 96 thou/uL (150-400); POLYS 90.4 %; RBC 3.05 mil/uL (4.50-6.00); RDW-CV 21.2 % (10.5-14.5); WBC 14.7 thou/uL (4.0-11.0)
[2019-05-24 20:53] LABS: ALBUMIN 2.1 g/dL (3.4-5.0); ALKALINE PHOSPHATASE 86 U/L (46-116); ANION GAP 11 mmol/L (7-16); BUN 48 mg/dL (7-18); CALCIUM 7.7 mg/dL (8.5-10.1); CHLORIDE 107 mmol/L (98-107); CO2 22 mmol/L (21-32); CREATININE 1.6 mg/dL (0.6-1.3); GLUCOSE 189 mg/dL (70-99); PHOSPHORUS* 3.3 mg/dL (2.5-4.9); POTASSIUM 4.1 mmol/L (3.5-5.1); SODIUM 140 mmol/L (136-145); TOTAL BILIRUBIN 7.9 mg/dL (<0.1-1.0); TOTAL PROTEIN 4.7 g/dL (6.4-8.2)
[2019-05-24 21:07] LABS: SGOT 2726 U/L (15-37); SGPT 2498 U/L (30-65)
[2019-05-25] VITALS (70 sets, daily range): BP systolic 73–239; BP diastolic 42–113
[2019-05-25 01:48] LABS: ALBUMIN 2.1 g/dL (3.4-5.0); CALCIUM 7.8 mg/dL (8.5-10.1); CREATININE 1.7 mg/dL (0.6-1.3); PHOSPHORUS* 3.2 mg/dL (2.5-4.9); POTASSIUM 3.8 mmol/L (3.5-5.1)
[2019-05-25 05:18] LABS: HEMATOCRIT 24.6 % (42.0-52.0); HEMOGLOBIN 8.5 gm/dL (14.0-18.0); INR 1.6; MCHC 34.5 g/dL (28.0-37.0); MCV 84.3 fL (80.0-100.0); MPV 9.1 fl. (7.2-11.1); PROTIME 16.3 Seconds (9.20-11.50); RBC 2.91 mil/uL (4.50-6.00); RDW-CV 21.6 % (10.5-14.5); WBC 10.2 thou/uL (4.0-11.0)
[2019-05-25 05:35] LABS: CALCIUM 7.6 mg/dL (8.5-10.1); CREATININE 1.7 mg/dL (0.6-1.3); POTASSIUM 4.2 mmol/L (3.5-5.1); TOTAL BILIRUBIN 7.2 mg/dL (<0.1-1.0); TOTAL PROTEIN 4.8 g/dL (6.4-8.2)
[2019-05-25 05:48] LABS: ALBUMIN 2.1 g/dL (3.4-5.0); CALCIUM 7.5 mg/dL (8.5-10.1); CREATININE 1.7 mg/dL (0.6-1.3); MAGNESIUM 1.9 mg/dL (1.8-2.4); PHOSPHORUS* 3.5 mg/dL (2.5-4.9); POTASSIUM 4.2 mmol/L (3.5-5.1)
[2019-05-25 05:54] LABS: PCO2 33.6 mmHg (35.0-45.0); PO2 79.9 mmHg (75.0-100.0); pH 7.379 (7.340-7.450)
--- NOTE | 2019-05-25 07:51 | NUR ---
SLOW PROGRESSION TOWARDS GOALS, AFEBRILE, LEVOPHED GTT TITRATD DOWN TO 4MCG/MIN, INSULIN GTT TITRATED FROM 15UNITS/HR TO 8UNITS HOUR MAINTAIN FSBS 150-200, FIO2 DECREASED BY RT FROM 70% TO 60%, MAINTAINING SAO2 =>98%, MINIMAL BEIGE THICK SECRETIONS SUCTIONED VIA INLINE ET TUBE. 100CC DARK MAROON DRAINAGE FROM NG LIS, DISTANT MINIMAL BOWEL SOUNDS, DANIELS PATENT DD 600CC ORANGE URINE WITH MINIMAL SEDIMENT, PRAFO BOOTS FOR BILAT FOOT DROP, FULL BED BATH GIVEN. X2 20MEQ POTASSIUM IVPB PER DKA PROTOCOL, IVF CHANGED TO ADD 20KCL AND 6MM KPHOS PER DKA PROTOCOL CONTINUES TO VIA INFUSION PUMP 80CC/HR.
[2019-05-25 09:27] LABS: ALBUMIN 1.9 g/dL (3.4-5.0); CALCIUM 7.3 mg/dL (8.5-10.1); CREATININE 1.7 mg/dL (0.6-1.3); POTASSIUM 4.5 mmol/L (3.5-5.1)
[2019-05-25 09:29] LABS: PHOSPHORUS* 3.9 mg/dL (2.5-4.9)
--- NOTE | 2019-05-25 10:39 | NUR ---
Nutrition: follow up note. Pt still intubated. Wt is fluctuating. Albumin 1.9, prealb 9.5, elevated LFTs, BG 187. D5 @ 80mL. Per ICU rounds, waiting on POC. Possible EGD while intubated today. Will await POC and follow up 05/27/19.
--- NOTE | 2019-05-25 18:38 | NUR ---
RECIEVED REPORT AND ASSUMED CARE AT 0700. ASSESSMENT COMPLETED CHARTED. MEDICATION ADMIN PER ORDERS. PT SLOWLY PROGRESSING TOWARDS GOALS. UNABLE TO TITRATE OFF LEVO THIS SHIFT. EGD COMPLETED. NG D/C PER PHYSICIAN. POSITION CHANGED EVERY 2 HOURS, HEELS OFF LOADED. BED LOCKED IN LOWEST POSITION, BED ALARM ON. ROUNDING COMPLETED AND ALL NEEDS MET.
--- NOTE | 2019-05-25 21:11 | NUR ---
INTITAL ASSESMENT COMPLETED AT 1915. PT INTUBATED AND SEDATED ON VENTILATOR. PT IN BILATERAL SOFT WRIST RESTRAINTS TO MAINTAIN ET TUBE, CENTRAL LINE, DANIELS CATHETER, RIGHT RADIAL ARTERIAL LINE. ORAL CARE IAND TURN COMPLETED.
[2019-05-26] VITALS (86 sets, daily range): BP systolic 80–130; BP diastolic 34–67
[2019-05-26 04:10] LABS: HEMATOCRIT 23.6 % (42.0-52.0); HEMOGLOBIN 7.9 gm/dL (14.0-18.0); MCH 28.6 pg (26.0-34.0); MCHC 33.3 g/dL (28.0-37.0); MCV 85.8 fL (80.0-100.0); MPV 9.1 fl. (7.2-11.1); RBC 2.76 mil/uL (4.50-6.00); RDW-CV 21.7 % (10.5-14.5)
[2019-05-26 04:19] LABS: INR 1.4; PROTIME 14.4 Seconds (9.20-11.50)
[2019-05-26 04:28] LABS: CALCIUM 7.5 mg/dL (8.5-10.1); CREATININE 2.2 mg/dL (0.6-1.3); MAGNESIUM 2.4 mg/dL (1.8-2.4); POTASSIUM 4.4 mmol/L (3.5-5.1); TOTAL BILIRUBIN 5.4 mg/dL (<0.1-1.0); TOTAL PROTEIN 4.9 g/dL (6.4-8.2)
--- NOTE | 2019-05-26 06:11 | NUR ---
PT CONTINUED ON VENTILATOR DURING SHIFT. FIO2 DECREASED TO 60%. PT ON FENTANYL AND PRESIDEX INFUSIONS FOR SEDATION WHILE INTUBATED. PT CONTINUED ON OCTREATIDE DRIP FOR TREATMENT OG GI BLEEDING. BLOOD PRESSURE AND HEART RATE WITHIN NORMAL LIMITS DURING SHIFT. O2 SAT 95-97% THICK YELLOW SECRETIONS FROM ET TUBE. SPUTUM CULTURE PENDING. NO ACUTE CHANGES DURING SHIFT WILL CONTINUE TO MONITOR CLOSELY.
[2019-05-27] VITALS (74 sets, daily range): BP systolic 93–187; BP diastolic 40–90
[2019-05-27 03:45] LABS: HEMATOCRIT 22.8 % (42.0-52.0); HEMOGLOBIN 7.6 gm/dL (14.0-18.0); MCH 28.5 pg (26.0-34.0); MCHC 33.3 g/dL (28.0-37.0); MCV 85.5 fL (80.0-100.0); MPV 8.8 fl. (7.2-11.1); RBC 2.67 mil/uL (4.50-6.00); RDW-CV 21.2 % (10.5-14.5); WBC 5.1 thou/uL (4.0-11.0)
[2019-05-27 04:06] LABS: ALBUMIN 2.4 g/dL (3.4-5.0); CALCIUM 7.8 mg/dL (8.5-10.1); CREATININE 2.1 mg/dL (0.6-1.3); MAGNESIUM 2.5 mg/dL (1.8-2.4); POTASSIUM 4.6 mmol/L (3.5-5.1); TOTAL BILIRUBIN 6.9 mg/dL (<0.1-1.0); TOTAL PROTEIN 5.3 g/dL (6.4-8.2)
[2019-05-27 06:50] LABS: BE -6.4 mmol/L (-2 to +3); PO2 80.1 mmHg (75.0-100.0)
--- NOTE | 2019-05-27 07:45 | NUR ---
ASSESSMENT CHARTED. PATIENT REMAINS ON LEVOPHED AT 1 MCG/MIN. PATIENT BEGAN HAVING FULL BODY TREMORS DURING SHIFT. CALLED DR VARGAS, ORDERS RECEIVED. REYNA CONSULTED. EEG SCHEDULED FOR DAYSHIFT. BLOOD PRESSURE IS LABILE. PATIENT REMAINS OFF SEDATION. GAVE FENTANYL TWICE DURING SHIFT FOR DISCOMFORT ON VENT. WILL CONTINUE TO MONITOR.
[2019-05-27 14:35] LABS: BE -5.1 mmol/L (-2 to +3); PCO2 30.3 mmHg (35.0-45.0); PO2 89.6 mmHg (75.0-100.0)
--- NOTE | 2019-05-27 18:40 | NUR ---
PATIENT REMAINS INTUBATED ALERT AT TIMES RESPONDS TO VOICE. TOLERATED TRIAL FOR 30 MINUTES. PROGRESSING.
[2019-05-28] VITALS (80 sets, daily range): BP systolic 98–168; BP diastolic 46–77
--- NOTE | 2019-05-28 01:48 | NUR ---
PATIENT HAS BEEN RESTLESS AND AGITATED THROUGHOUT THE SHIFT. FENTANYL PUSHES NOT LASTING LONG ENOUGH TO KEEP PATIENT CALM. SPOKE WITH DR OLIVARES. ORDERS RECEIVED TO START PROPOFOL GTT PER ICU PROTOCOL. PATIENT'S BP STABLE, OFF PRESSORS SINCE DAYSHIFT.
[2019-05-28 03:58] LABS: HEMATOCRIT 22.8 % (42.0-52.0); HEMOGLOBIN 7.4 gm/dL (14.0-18.0); MCH 27.7 pg (26.0-34.0); MCHC 32.3 g/dL (28.0-37.0); MCV 85.7 fL (80.0-100.0); MPV 9.2 fl. (7.2-11.1); RBC 2.66 mil/uL (4.50-6.00); RDW-CV 21.5 % (10.5-14.5); WBC 4.2 thou/uL (4.0-11.0)
[2019-05-28 04:09] LABS: ALBUMIN 2.4 g/dL (3.4-5.0); CALCIUM 7.8 mg/dL (8.5-10.1); CREATININE 1.9 mg/dL (0.6-1.3); MAGNESIUM 2.7 mg/dL (1.8-2.4); POTASSIUM 4.4 mmol/L (3.5-5.1); TOTAL BILIRUBIN 8.5 mg/dL (<0.1-1.0); TOTAL PROTEIN 5.4 g/dL (6.4-8.2)
[2019-05-28 05:15] LABS: BE -5.4 mmol/L (-2 to +3); PCO2 28.4 mmHg (35.0-45.0); pH 7.424 (7.340-7.450)
--- NOTE | 2019-05-28 06:43 | NUR ---
ASSESSMENT CHARTED. PATIENT RESTLESS DURING SHIFT. LESS RESTLESS ON PROPOFOL AT 10. PATIENT UNDERWENT WEANING TRIAL TODAY, TOLERATED WELL. WOUND ON COCCYX REINFORCED. REMAINED OFF PRESSORS ALL SHIFT. NEURO STILL NEEDS TO SEE PATIENT FOR CONSULT. WILL CONTINUE TO MONITOR.
[2019-05-28 11:23] LABS: URINE BLOOD TRACE (Negative); URINE CLARITY SL CLOUDY; URINE COLOR YELLOW; URINE GLUCOSE-RANDOM NEGATIVE (Negative); URINE KETONES NEGATIVE (Negative); URINE LEUKOCYTES 1+ (Negative); URINE NITRITE NEGATIVE (Negative); URINE PROTEIN NEGATIVE (Negative); URINE UROBILINOGEN 0.2 E.U./dl (0.2-1.0)
[2019-05-28 11:25] LABS: ICTOTEST (BILI CONFIRMATORY) Negative (Negative); URINE BILIRUBIN 1+ (Negative)
[2019-05-28 11:31] LABS: SQUAMOUS 0-3 Few /LPF (0-3)
[2019-05-28 11:32] LABS: BACTERIA 1-9 Few /HPF (None Seen); CASTS None Seen /LPF (None Seen); CRYSTALS None Seen /LPF (None Seen); MUCUS None Seen strn/LPF (None Seen); URINE RBC 0-2 Rare /HPF (0-2); URINE WBC 0-5 Rare /HPF (0-5); YEAST Present (None Seen)
--- NOTE | 2019-05-28 19:33 | NUR ---
PT ON VENT SUPPORT, SEDATION CHANGED TO PRECEDEX PER PULMONARY, TITRATED PER PROTOCOL. PROPOFOL HOLD AT 1500, PT COMFORTABLE. D5 WITH HCO3 AT 75 MLS/HR, OCTREOTIDE CONTD AT 50 MCG/HR. VSS. WOUND DSG CHANGED. ROUTINE CARE GIVEN. WEANING TRIAL TOMORROW AT 0900.
[2019-05-29] VITALS (29 sets, daily range): BP systolic 98–145; BP diastolic 49–69
[2019-05-29 03:09] LABS: HEMOGLOBIN 7.1 gm/dL (14.0-18.0); MCH 27.6 pg (26.0-34.0); MCHC 32.2 g/dL (28.0-37.0); MCV 85.9 fL (80.0-100.0); MPV 8.8 fl. (7.2-11.1); NUCLEATED RBCS 1 /100WBC; PLATELET COUNT* 72 thou/uL (150-400); RBC 2.56 mil/uL (4.50-6.00); RDW-CV 20.5 % (10.5-14.5)
[2019-05-29 03:27] LABS: ALBUMIN 2.3 g/dL (3.4-5.0); CALCIUM 7.8 mg/dL (8.5-10.1); CREATININE 1.9 mg/dL (0.6-1.3); POTASSIUM 4.1 mmol/L (3.5-5.1); TOTAL PROTEIN 5.2 g/dL (6.4-8.2); WBC 1.8 thou/uL (4.0-11.0)
[2019-05-29 03:29] LABS: PHOSPHORUS* 6.2 mg/dL (2.5-4.9)
[2019-05-29 06:16] LABS: ABSOLUTE LYMPHOCYTES 0.3 thou/uL (0.8-5.3); ABSOLUTE NEUTROPHILS 1.5 thou/uL (1.6-8.1); ANISOCYTOSIS 2+; ATYPICAL LYMPHS 5 %; METAMYELOCYTES 2 %; PLATELET ESTIMATE DECREASED; POLYCHROMASIA 2+
--- NOTE | 2019-05-29 06:55 | NUR ---
ASSESSMENT CHARTED. PATIENT REMAINS ON PRECEDEX AT 0.8. THICK YELLOW SPUTUM BEING SUCTIONED OUT OF ET TUBE. CRITICAL LAB RESULTS CAME BACK ON PATIENT AND SCREENED POSITIVE FOR SEPSIS. CALLED DR. HARVEY AND HAVE NOT RECEIVED CALL BACK. HR DROPPED TO UPPER 50S FOR ABOU 20 MINUTES AND CONVERTED BACK TO NSR. REMAINS OFF OF PRESSORS. PATIENT MILDLY HYPOTHERMIC AROUND MIDNIGHT TO 0300, PLACED ABHI HUGGER ON PATIENT AND TEMPERATURE IMPROVED. ABHI HUGGER STILL ON AND SET TO LOW.
[2019-05-29 10:26] LABS: BE -4.4 mmol/L (-2 to +3); PCO2 31.2 mmHg (35.0-45.0); PO2 84.5 mmHg (75.0-100.0); pH 7.415 (7.340-7.450)
--- NOTE | 2019-05-29 17:40 | NUR ---
PT PASSED HIS WEANING TRIAL THIS MORNING THOUGH A BIT MORE AGITATED TOWARDS THE END OF THE TRIAL. NO EXTUBATION TODAY PER DR OLIVARES, WEANING TRIAL TOMM AT 0900. WOUND DSG DONE. PRECEDEX TITRATED PER PROTOCOL AND FENTANYL GIVEN THRICE THIS SHIFT FOR AGITATION. D5 AT 50 MLS/HR AND OCTEOTIDE CONTD AT 50 MCG/HR. REPOSITIONED EVERY 2 HRS.
[2019-05-30] VITALS (18 sets, daily range): BP systolic 112–148; BP diastolic 49–74
[2019-05-30 05:21] LABS: ABSOLUTE LYMPHOCYTES 0.2 thou/uL (0.8-5.3); ABSOLUTE MONOCYTES 0.1 thou/uL (0.0-1.2); BASOPHILS 0.2 %; HEMATOCRIT 22.6 % (42.0-52.0); HEMOGLOBIN 7.3 gm/dL (14.0-18.0); LYMPHOCYTES 11.9 %; MCH 27.5 pg (26.0-34.0); MCHC 32.3 g/dL (28.0-37.0); MCV 85.1 fL (80.0-100.0); MONOCYTES 6.7 %; MPV 8.7 fl. (7.2-11.1); NUCLEATED RBCS 0 /100WBC; PLATELET COUNT* 58 thou/uL (150-400); POLYS 81.2 %; RBC 2.66 mil/uL (4.50-6.00); RDW-CV 20.5 % (10.5-14.5)
[2019-05-30 05:26] LABS: ABSOLUTE NEUTROPHILS 1.5 thou/uL (1.6-8.1)
[2019-05-30 05:28] LABS: APTT 27.3 Seconds (25.0-31.3); INR 1.6; PROTIME 16.4 Seconds (9.20-11.50)
[2019-05-30 05:29] LABS: WBC 1.9 thou/uL (4.0-11.0)
[2019-05-30 05:30] LABS: ALBUMIN 2.2 g/dL (3.4-5.0); CALCIUM 7.7 mg/dL (8.5-10.1); CREATININE 1.6 mg/dL (0.6-1.3); MAGNESIUM 2.9 mg/dL (1.8-2.4); POTASSIUM 3.7 mmol/L (3.5-5.1); TOTAL PROTEIN 5.3 g/dL (6.4-8.2)
--- NOTE | 2019-05-30 05:33 | NUR ---
ASSUMED CARE AT 1910H, ON VENT AT 45% FIO2 AND ON PRECEDEX DRIP.PT SOMETIMES RESTLESS AND FENTANYL IV PRN GIVEN.PT IS MORE AWAKE AND ALWAYS ASKING FOR MOUTH SWAB.HE WAS ABLE MAKE SOUND EVEN IF ON VENT.CUFF IS WELL INFLATED, INSTRUCTED PT NOT NO TALK OR MAKE A SOUND BECAUSE HE MAY DAMAGE HIS VOCAL CORD.NO DISTRESS NOTED.CONTINUE MONITORING AND TOWARDS GOAL.
[2019-05-30 09:19] LABS: BE -5.6 mmol/L (-2 to +3); PCO2 31.8 mmHg (35.0-45.0); pH 7.388 (7.340-7.450)
[2019-05-30 09:22] LABS: PO2 145.8 mmHg (75.0-100.0)
--- NOTE | 2019-05-30 11:06 | NUR ---
PT EXTUBATED AT 1043, EXTUBATION UNEVENTFUL. O2 SUPPORT OF NC 2L/MIN. PT TO BE KEPT NPO. REORIENTATION PROVIDED. ORAL CARE GIVEN.
--- NOTE | 2019-05-30 11:45 | NUR ---
INT. ROUNDS: MET WITH PT, STILL INTUBATED BUT ALERT, S/O TAMMIE, HER MOTHER AND PT'S FATHER. PER TAMMIE, SHE IS WITH PT ALL THE TIME, ASSISTS WITH TRANSFERS USING LIFT DEVICE. PT IS ABLE TO USE ELECTRIC W/C TO GET AROUND HOUSE, GET HIS DRINK FROM KITCHEN AND CAN FEED SELF. HE IS ABLE TO HELP HER SOME WITH LAUNDRY DUTIES-FOLDING, PUT AWAY. HE HAS BEEN GOING TO OUTPT THERAPY AT [facility] IN [place] FOR WATER AND PT THERAPY AND THEY WOULD LIKE TO CONTINUE THAT AT [place]. TAMMIE STATED PT IS BEING EVAL'D FOR A NEW W/C. THEY ALSO HAVE A W/C VAN. PER TAMMIE, PT'S MOM/MICHAEL WALKER IS HIS DPOA
[2019-05-30 16:23] LABS: CALCIUM 8.4 mg/dL (8.5-10.1); CREATININE 1.4 mg/dL (0.6-1.3); POTASSIUM 4.1 mmol/L (3.5-5.1)
--- NOTE | 2019-05-30 18:35 | NUR ---
PT ALERT AND ORIENTED X3. VSS. O2 SUPPORT OF NC 2L/MIN, TOLERATING WELL. TO BE KEPT ON BIPAP AT NIGHT. D5 AT 50 MLS/HR. ELECTROLYTES REPLACED. PT TOLERATAD CLEAR LIQUID DIET. NO BM THIS SHIFT. GOOD URINE OUTPUT. COCCYX WOUND DRESSED. REPOSITIONING DONE Q2H.
[2019-05-31] VITALS (19 sets, daily range): BP systolic 71–166; BP diastolic 30–65
[2019-05-31 04:52] LABS: ABSOLUTE LYMPHOCYTES 0.9 thou/uL (0.8-5.3); ABSOLUTE MONOCYTES 0.5 thou/uL (0.0-1.2); ABSOLUTE NEUTROPHILS 7.1 thou/uL (1.6-8.1); BASOPHILS 0.1 %; EOSINOPHILS 0.3 %; HEMATOCRIT 24.3 % (42.0-52.0); LYMPHOCYTES 10.7 %; MCH 28.2 pg (26.0-34.0); MCHC 32.8 g/dL (28.0-37.0); MONOCYTES 5.9 %; MPV 8.7 fl. (7.2-11.1); NUCLEATED RBCS 0 /100WBC; PLATELET COUNT* 59 thou/uL (150-400); RBC 2.83 mil/uL (4.50-6.00); RDW-CV 20.1 % (10.5-14.5)
--- NOTE | 2019-05-31 05:18 | NUR ---
ASSUMED CARE AT 1910H, PT ON NC AT 2LPM BUT REFUSED BIPAP AT NIGHT TIME. NO RESPIRATORY DISTRESS.PT COMPLAIN OF GENERALIZED PAIN AND INFORM HIMS REGARDING PT'S HOME MEDS AND STARTED BACLOFEN AND GABAPENTIN.CONTINUE MONITORING AND TOWARDS GOAL.
[2019-05-31 05:21] LABS: WBC 8.5 thou/uL (4.0-11.0)
[2019-05-31 05:26] LABS: ALBUMIN 2.8 g/dL (3.4-5.0); CREATININE 1.3 mg/dL (0.6-1.3); MAGNESIUM 2.7 mg/dL (1.8-2.4); POTASSIUM 3.8 mmol/L (3.5-5.1); TOTAL BILIRUBIN 12.7 mg/dL (<0.1-1.0); TOTAL PROTEIN 5.7 g/dL (6.4-8.2)
--- NOTE | 2019-05-31 10:20 | NUR ---
INT. ROUNDS: MET WITH PT, TAMMIE/BAM AND MOM. PT ON O2 PER NC NOW, VOICE WEAK. ABLE TO ANSWER ALL QUESTIONS. PT PLANS TO RETURN HOME AT [place] WITH TAMMIE AND HIS CURRENT CARE. HE HAD BEEN GOING TO OUTPT THERAPY AT [facility] IN [facility] BUT UNSURE STRONG ENOUGH. AWAIT THERAPY EVALS. DISCUSSED POSSIBLE HH, THEY ARE OPEN TO OPTIONS. UNABLE TO CONFIRM PT RECEIVED HIS CPAP THRU [facility]. PER PT, HE GOT IT WHEN HE LIVED IN [place], [place]. TAMMIE TO CHECK PAPERWORK AT HOME AND CONTACT CM WITH INFO. WILL FOLLOW
--- NOTE | 2019-05-31 12:06 | NUR ---
ART LINE AND CVP MONITORING DISCONTINUED. 40 MEQ OF POTASSIUM REPLACED. IV FLUIDS DC'd. DIET ADVANCED TO CARB CONTROL. PT PROGRESSING TOWARDS GOAL.
[2019-06-01] VITALS (15 sets, daily range): BP systolic 72–151; BP diastolic 28–95
[2019-06-01 06:09] LABS: HEMOGLOBIN 5.6 gm/dL (14.0-18.0)
[2019-06-01 06:10] LABS: HEMATOCRIT 17.5 % (42.0-52.0)
--- NOTE | 2019-06-01 06:47 | NUR ---
INCONTINENT OF LARGE BLACK TARRY BM EARLIER IN SHIFT, PT REPORTED INCREASED FATIGUE COMPARED TO PREVIOUS NIGHT. HGB ORDERED, 5.[address] V[address] DR CAMPBELL, 2 UNITS PRBC'S ORDERED AND GI RECONSULTED. PT HAS BEEN TURNED Q2HR THROUGHOUT THE SHIFT.
--- NOTE | 2019-06-01 08:19 | NUR ---
PT TRANSFERRED TO 208 VIA BED, REPORT GIVEN TO HUGH RN, PT ALERT AND ORIENTED, BP STABLE UPON TRANSFER.
--- NOTE | 2019-06-01 08:40 | EEG ---
[address] [address] EEG STUDY REPORT Name: DENISEMANFunmilayo Rosenbaum Room: [address] IN .R.#: [id number] Admission: 05/22/19 Attend Phys: Gucci Malhotra MD Discharge: Date of : 66 Report #: [id number] THIS REPORT FOR: //name// CC: Foster Malhotra DATE OF SERVICE: 05/27/2019 This patient is being evaluated for the possibility of seizure. EEG was done by placing the electrode by standard 10-20 system of electrode placement. Both referential and sequential montages were used for recording. EEG was done by placing the electrode by standard 10-20 system of electrode placement. Background activity is about 7 Hz and 30 microvolt. It is intermixed with a lot of theta range slowing. It goes much slower on multiple occasions. It is difficult to tell when he is awake and when he is asleep. IMPRESSION: This is an abnormal EEG because it is disorganized and poorly formed. That is a nonspecific abnormality, which can occur with dementia, encephalopathy, effect of psychotropic medication, etc. Clinical correlation is recommended. <ELECTRONICALLY SIGNED> By: Caleb Chávez MD 06/01/19 0840 [id number] [id number] Chávez MD /nt
[2019-06-01 12:30] LABS: ALBUMIN 2.3 g/dL (3.4-5.0); CALCIUM 7.7 mg/dL (8.5-10.1); CREATININE 1.3 mg/dL (0.6-1.3); MAGNESIUM 2.3 mg/dL (1.8-2.4); PHOSPHORUS* 3.9 mg/dL (2.5-4.9); POTASSIUM 4.6 mmol/L (3.5-5.1); TOTAL BILIRUBIN 14.6 mg/dL (<0.1-1.0); TOTAL PROTEIN 4.5 g/dL (6.4-8.2)
--- NOTE | 2019-06-01 12:55 | NUR ---
WOUND NURSE: PATIENT SEEN FOR FOLLOW UP PERTAINING TO SACRAL COCCYGEAL WOUND MEASURING 4.0 X 4.0 X 0.2 CM. WOUND HAS 2 OPENINGS AND MEASUREMENT CONTAINS 75% INTACT NORMAL SKIN. HAS LINEAR LEISON IN CENTER AND CIRCIFORM LESION OFF THE LEFT SIDE OF THE AREA. WOUND OPENINGS WITH 75% EARLY GRANULATION TISSUE, 25% BLACKENED MOIST ESCHAR PREDOMINANT ON THE OFF CENTER WOUND OPENING. CLEANSED WITH WOUND CLEANSER AND GAUZE BY STAFF NURSE CARING FOR PATIENT, THEN COVERED WITH AQUACEL AG UNDER BORDERED FOAM DRESSING.
[2019-06-01 15:43] LABS: HEMATOCRIT 21.1 % (42.0-52.0)
[2019-06-01 15:52] LABS: APTT 36.3 Seconds (25.0-31.3); INR 1.9; PROTIME 18.6 Seconds (9.20-11.50)
[2019-06-01 17:06] LABS: HEMATOCRIT 20.9 % (42.0-52.0); MCH 29.2 pg (26.0-34.0); MCHC 33.5 g/dL (28.0-37.0); MPV 9.7 fl. (7.2-11.1); RBC 2.4 mil/uL (4.50-6.00); RDW-CV 19.4 % (10.5-14.5); WBC 10.6 thou/uL (4.0-11.0)
--- NOTE | 2019-06-01 19:43 | NUR ---
PT TRANSFERED FROM ICU TO ROOM 208 THIS AM AT APPROX 0800. PT AXO X4, DENIES PAIN. PT HAD EGD TODAY, 2 UNITS PRBC'S GIVEN. PT HAD LARGE DARK LOOSE STOOL THIS EVENING. PT TOLERATING CLEAR LIQUIDS WELL AFTER EGD. PT AND FAMILY UPDATED ON PLAN. JEREMIAH IN PLACE D/D. REMIANS ON 2L O2, VSS, SR ON THE MONITOR. WOUND CARE PERFORMED. PT REMIANS IN ISOLATION. REPORT GIVEN TO EMILY CAMACHO
[2019-06-01 21:16] LABS: HEMATOCRIT 20.9 % (42.0-52.0)
[2019-06-01 21:19] LABS: HEMOGLOBIN 6.9 gm/dL (14.0-18.0)
[2019-06-02] VITALS (7 sets, daily range): BP systolic 86–128; BP diastolic 34–57
[2019-06-02 01:42] LABS: MCH 29.5 pg (26.0-34.0); MCHC 33.2 g/dL (28.0-37.0); MCV 89.1 fL (80.0-100.0); MPV 10.2 fl. (7.2-11.1); RBC 2.06 mil/uL (4.50-6.00); RDW-CV 17.7 % (10.5-14.5); WBC 13.9 thou/uL (4.0-11.0)
[2019-06-02 01:45] LABS: HEMATOCRIT 18.3 % (42.0-52.0); HEMOGLOBIN 6.1 gm/dL (14.0-18.0)
[2019-06-02 02:11] LABS: ALBUMIN 1.7 g/dL (3.4-5.0); CALCIUM 7.1 mg/dL (8.5-10.1); CREATININE 1.3 mg/dL (0.6-1.3); MAGNESIUM 2.1 mg/dL (1.8-2.4); POTASSIUM 4.8 mmol/L (3.5-5.1); TOTAL BILIRUBIN 13.3 mg/dL (<0.1-1.0); TOTAL PROTEIN 3.5 g/dL (6.4-8.2)
--- NOTE | 2019-06-02 06:32 | NUR ---
PT SLEPT ON AND OFF THIS SHIFT. ASSESSMENT DOCUMENTED. MEDS GIVEN PER E-DEC. CENTRAL LINE PATENT. NO REPORTS OF PAIN. PT HAD EPISODE OF EMESIS WITH BLOOD CLOTS. DR NOTIFIED, H&H REDRAWN, DR NOTIFIED OF RESULTS, 1 UNIT OF BLOOD GIVEN WITH NO NOTED REACTIONS. BP AFTER BLOOD FINISHED INFUSING WAS 72/28 MANUAL, NOTIFIED, CHARGE NURSE, SPORT INTERN AND THIS NURSE IN ROOM, LABS REDRAWN, 500ML BOLUS GIVEN. GI NOTIFIED, ADDITIONAL ORDER FOR 2 MORE UNITS PER GI. 1ST UNIT GIVEN WITH NO NOTED EFFECTS, 2ND UNIT CURRENTLY INFUSING. PT HAD TARRY BOWEL MOVEMENT THIS SHIFT. WILL CONTINUE WITH PLAN OF CARE.
[2019-06-02 10:31] LABS: HEMATOCRIT 24.4 % (42.0-52.0); HEMOGLOBIN 8.2 gm/dL (14.0-18.0)
--- NOTE | 2019-06-02 14:00 | NUR ---
ASSUMED PT CARE AT 0800, AOX4, O2 SAT 90'S 2L NC. TRACING SR ON QA AUTOMATION DEVELOPER. PT DENIES PAIN. PT ACCU CHECK. ISO FOR MRSA. WOUND ON COCCYX AREA NOTED. Q2 TURN. PT HAS 2 EPISODE OF BLOODY STOOL. PT NPO FOR EGD. PT HAS DANIELS CATH DRAINING WELL. L CHEST CENTRAL LINE INTACT. VSS, AM ASSESSMENT CHARTED. MEDS GIVEN PER MAR, CALL LIGHT WITHIN REACH. WILL CONTINUE TO MONITOR,
[2019-06-02 16:12] LABS: HEMATOCRIT 25.3 % (42.0-52.0); HEMOGLOBIN 8.4 gm/dL (14.0-18.0)
[2019-06-03] VITALS: BP 143/63
[2019-06-03 02:10] LABS: HEPATITIS B SURFACE AG Negative (Negative)
[2019-06-03 04:00] VITALS: BP 143/42
[2019-06-03 04:30] LABS: MCHC 32.1 g/dL (28.0-37.0); MCV 90.3 fL (80.0-100.0); MPV 10.1 fl. (7.2-11.1); NUCLEATED RBCS 0 /100WBC; RBC 2.02 mil/uL (4.50-6.00); RDW-CV 16.9 % (10.5-14.5)
[2019-06-03 04:39] LABS: INR 1.7; PROTIME 17.4 Seconds (9.20-11.50)
[2019-06-03 04:52] LABS: ALBUMIN 1.7 g/dL (3.4-5.0); CALCIUM 7.4 mg/dL (8.5-10.1); CREATININE 1.5 mg/dL (0.6-1.3); POTASSIUM 4.9 mmol/L (3.5-5.1); TOTAL BILIRUBIN 18.4 mg/dL (<0.1-1.0); TOTAL PROTEIN 3.8 g/dL (6.4-8.2)
[2019-06-03 05:15] LABS: PLATELET COUNT* 176 thou/uL (150-400)
[2019-06-03 05:16] LABS: HEMATOCRIT 18.2 % (42.0-52.0); HEMOGLOBIN 5.9 gm/dL (14.0-18.0); WBC 40.9 thou/uL (4.0-11.0)
[2019-06-03 06:47] LABS: ABSOLUTE EOSINOPHILS 0.4 thou/uL (0.0-0.7); ABSOLUTE LYMPHOCYTES 4.1 thou/uL (0.8-5.3); ABSOLUTE NEUTROPHILS 34.4 thou/uL (1.6-8.1)
[2019-06-03 06:54] LABS: ANISOCYTOSIS 2+; HYPOCHROMASIA 2+
[2019-06-03 06:55] LABS: MICROCYTES 1+; PLATELET ESTIMATE ADEQUATE; TOXIC GRANULATION 2+
[2019-06-03 06:56] VITALS: BP 121/41; BP 127/45; BP 134/48; BP 136/46
[2019-06-03 08:00] VITALS: BP 109/39
--- NOTE | 2019-06-03 11:37 | NUR ---
Pt needs to transfer to [place] for a BRTO per GI. CM contacted [facility] Transfer team [phone], faxed needed info to [phone]. CM requested radiology films be uploaded to the cloud her iList request. Awaiting decision to accept. Following.
[2019-06-03 12:07] LABS: ANA INTERPRETATION Negative (Negative)
[2019-06-03 12:18] LABS: HEMATOCRIT 15.6 % (42.0-52.0)
[2019-06-03 12:19] LABS: HEMOGLOBIN 5.3 gm/dL (14.0-18.0)
[2019-06-03 13:17] VITALS: BP 101/46
--- NOTE | 2019-06-03 13:41 | NUR ---
Pt discharged to [place] for BRTO. Accepting Dr is Dr Torres. Pt will go to ER then to IR then [id number]. Nurse report number is [phone]. Emergent ambulance transport arranged. Updated Pt's S/O via phone. EMTALA form completed, original on chart, copy faxed to [place].
--- NOTE | 2019-06-03 14:46 | NUR ---
ASSUMED PT CARE AT 0800, AOX4, BEDREST, O2 SAT 90'S 2L NC. RECEIVED PT WITH ONGOING BLOOD TRANSFUSION. PT FOR CT, NPO. PT HAS DANIELS CATH DRAINING WELL,L CHEST 3 LUMEN INTACT. FOR ACCU CHECK. FOR ISO MRSA. AROUND 1219, PT HAD CRITICAL LAB HEMOGLOBIN 5.3, NOTIFIED. AT 1321 HANG 1 UNIT OF BLOOD AND ABOUT TO TRANSPORT, WITH EMS. PT TRANSFERED TO [place], GIVE REPORT TO [facility] ICU NURSE.
--- NOTE | 2019-06-04 08:27 | CON ---
[address] [address] CONSULTATION Name: SAVANAH WALKER Room: [address] M.R.#: [id number] Admission: 05/22/19 Attend Phys: Gucci Malhotra MD Discharge: 06/03/19 Date of : 66 Report #: [id number] THIS REPORT FOR: //name// CC: Foster Malhotra DATE OF SERVICE: 06/02/2019 INFECTIOUS DISEASE CONSULTATION ATTENDING PHYSICIAN: Dr. Gucci Malhotra. REASON FOR EVALUATION: MRSA septicemia. HISTORY OF PRESENT ILLNESS: Chart reviewed, the patient examined. This is a 48-year-old white male with history of spinal stenosis, underwent surgical procedure. He was left with severe deficits, now essentially quadriplegic. He also has underlying end-stage liver disease, admitted with gastrointestinal hemorrhage, possibly for several days. He is scheduled to undergo endoscopy. He did have blood cultures collected the day of admission on 05/22/2019, both of which were sterile. Repeat ones I believe as a result of fevers on the 05/24/2019 with now confirmed growth of oxacillin-resistant Staph aureus. Subsequent blood cultures have been collected, all of which have been sterile as well including on the and again on the . He was on empiric antimicrobial therapies initially with piperacillin, tazobactam, briefly on Augmentin and now is on Unasyn. Review of the last 7 days, he has only had occasional temperature elevation on breaking 100 degrees Fahrenheit. He denies significant pulmonary or gastrointestinal related complaints. At this point, he is seen in the preoperative area. ALLERGIES: None known. MEDICATIONS: Include ondansetron, metoclopramide, Unasyn, pantoprazole, trazodone, amitriptyline, gabapentin, insulin, and hydrocodone. PAST MEDICAL HISTORY: As described above, diabetes mellitus type 2, end-stage liver disease, esophageal varices, gastrointestinal hemorrhage, history of spinal stenosis status post spinal surgery, severe sequelae, history of testicular cancer, and question of cerebral palsy. SOCIAL HISTORY: Apparently, ____ ethanol on a regular basis. Former smoker. No illicit drug use. FAMILY HISTORY: Noncontributory. REVIEW OF SYSTEMS: Otherwise unremarkable with the exception [place] [address] CONSULTATION Name: SAVANAH WALKER Room: [address]#: [id number] Admission: 05/22/19 Attend Phys: Gucci Malhotra MD Discharge: 06/03/19 Date of : 66 Report #: [id number] PHYSICAL EXAMINATION: GENERAL: He appears chronically ill, undernourished. He is overtly jaundiced. VITAL SIGNS: Temperature 97.7, pulse 94, respirations 16, and blood pressure is 118/53. SKIN: Warm. HEENT: Normocephalic. Extraocular muscles are intact. Does have some icterus. NECK: Supple. LUNGS: Diminished breath sounds. HEART: Regular, borderline tachycardic. He has got a soft systolic murmur. ABDOMEN: Distended. There are no overt peritoneal signs. Not overtly tender. GENITOURINARY/RECTAL: Deferred. LABORATORY/RADIOLOGIC DATA: PT of 20.0 and INR of 2.0. Hemoglobin 8.2 that is post transfusion, up from 6.1. Most recent blood cultures from 06/01/2019 are sterile thus far. Chest x-ray, improving aeration, decreasing vascular congestion, and there is some cardiomegaly. Electrolytes: Sodium 138, potassium 4.8, chloride 106, bicarbonate is 24, anion gap of 8, BUN and creatinine 46 and 1.3, and glucose of 289. AST of 40, ALT of 146, total bilirubin of 13.3, total protein 3.5, and albumin of 1.7. Prealbumin of 2.3. CBC: White count of 13.9 and as noted above, hemoglobin 6.1, hematocrit 18 3, and platelets of 70. ASSESSMENT AND PLAN: Positive blood culture back several days ago, which confirmed the methicillin-resistant Staphylococcus aureus. I think it is a rare situation where I view this as a contaminant. I think this, however, is a particular situation, had negative blood cultures at admission and subsequently, he has not been on therapy that would cover that particular organism based on its beta lactamase producing status. We will continue the Unasyn rachelle-procedurally. We have to monitor expectantly, certainly at risk for nosocomial-related infectious complications. At this point, we will just wait on pending results of most recent blood cultures. <ELECTRONICALLY SIGNED> By: Mario Alberto Fischer MD 06/04/19 0827 [id number] Alberto Fischer MD /nt
--- NOTE | 2019-06-04 12:06 | NUR ---
RECEIVED NOTICE FROM LAB PT HAS GRAM POSITIVE COCCI IN BLOOD CULTURE FROM 06/01/19. CALLED [facility] AND SPOKE TO KAM CAMACHO TO REPORT THE FINDING.
== END 2019-06-03 13:29 | disposition short-term general hospital (02) | DRG 207 ==
LOC: M.ERS 14:53 → M.ICU 16:49 → M.TBA-ER 16:49 → M.ICU 18:30 → M.2W 06-01 08:09
PROVIDERS: Family Medicine; Internal Medicine; Internal Medicine Critical Care Medicine; Internal Medicine Gastroenterology; Internal Medicine Pulmonary Disease; Nurse Practitioner Adult Health; Personal Emergency Response Attendant; ADMIT Internal Medicine
PROC: 5A1955Z Respiratory Ventilation, Greater than 96 Consecutive Hours (ICD-10-PCS; principal; 2019-05-22)
PROC: 02HV33Z Insertion of Infusion Device into Superior Vena Cava, Percutaneous Approach (ICD-10-PCS; principal; 2019-05-22)
PROC: 30233K1 Transfusion of Nonautologous Frozen Plasma into Peripheral Vein, Percutaneous Approach (ICD-10-PCS; principal; 2019-05-22)
PROC: 0BH17EZ Insertion of Endotracheal Airway into Trachea, Via Natural or Artificial Opening (ICD-10-PCS; principal; 2019-05-22)
PROC: 0DJ08ZZ Inspection of Upper Intestinal Tract, Via Natural or Artificial Opening Endoscopic (ICD-10-PCS; 2019-05-25)
PROC: 30233N1 Transfusion of Nonautologous Red Blood Cells into Peripheral Vein, Percutaneous Approach (ICD-10-PCS; 2019-06-01)
PROC: 0DJ08ZZ Inspection of Upper Intestinal Tract, Via Natural or Artificial Opening Endoscopic (ICD-10-PCS; 2019-06-01)
DX: J96.00 Acute respiratory failure, unspecified whether with hypoxia or hypercapnia (principal); I85.01 Esophageal varices with bleeding; R57.8 Other shock; G92 Toxic encephalopathy; J69.0 Pneumonitis due to inhalation of food and vomit; N17.0 Acute kidney failure with tubular necrosis; E11.10 Type 2 diabetes mellitus with ketoacidosis without coma; G82.50 Quadriplegia, unspecified; I46.9 Cardiac arrest, cause unspecified; I47.1 Supraventricular tachycardia; G93.1 Anoxic brain damage, not elsewhere classified; E87.0 Hyperosmolality and hypernatremia; G72.81 Critical illness myopathy; J44.9 Chronic obstructive pulmonary disease, unspecified; K74.60 Unspecified cirrhosis of liver; M48.00 Spinal stenosis, site unspecified; G47.33 Obstructive sleep apnea (adult) (pediatric); K21.9 Gastro-esophageal reflux disease without esophagitis; I95.9 Hypotension, unspecified; K72.90 Hepatic failure, unspecified without coma; N18.9 Chronic kidney disease, unspecified; E11.22 Type 2 diabetes mellitus with diabetic chronic kidney disease; K44.9 Diaphragmatic hernia without obstruction or gangrene; E87.70 Fluid overload, unspecified; D46.9 Myelodysplastic syndrome, unspecified; R25.1 Tremor, unspecified; Z22.322 Carrier or suspected carrier of Methicillin resistant Staphylococcus aureus; Z85.47 Personal history of malignant neoplasm of testis; Z79.899 Other long term (current) drug therapy